=== PATIENT | female | born 1965 | race Caucasian/White ===

== ENCOUNTER 2017-05-07 20:10 | Inpatient (IN) | payer MEDICAID, OTHER ==
[~2017-05-07] VITALS: Ht 154.9 cm; Wt 52.3 kg
[~2017-05-07 20:10] MED LIST: BUPR150T9 PO; CLON2TAB2 PO; DIVA500T2 PO; DIVA500T9 PO; LISI-334 PO; MAGN400T22 PO; METF10002 PO; METF500T4 PO; ONDA4TAB10 SL; SIMV40TA3 PO; TRAM50TA PO; TRAZ150T49 PO; VYVANCE; brintellix
[2017-05-07 21:53] LABS: BASO % 0 % (0-3); EOS # 0.1 x10^3/uL (0.0-0.7); EOS % 1 % (0-3); HEMATOCRIT 36.7 % (36.0-47.0); HEMOGLOBIN 12.3 g/dL (12.0-15.5); LYMPH # 2.4 x10^3/uL (1.0-4.8); LYMPH % 37 % (24-48); MEAN CORPUSCULAR HEMOGLOBIN 30 pg (25-35); MEAN CORPUSCULAR HGB CONC 34 g/dL (31-37); MEAN CORPUSCULAR VOLUME 89 fL (79-100); MONO # 0.5 x10^3/uL (0.0-1.1); MONO % 8 % (0-9); NEUT # 3.5 x10^3uL (1.8-7.7); NEUT % 53 % (31-73); PLATELET COUNT 206 x10^3/uL (140-400); RED BLOOD COUNT 4.13 x10^6/uL (3.50-5.40); RED CELL DISTRIBUTION WIDTH 13.9 % (11.5-14.5); WHITE BLOOD COUNT 6.6 x10^3/uL (4.0-11.0)
[2017-05-07 22:09] LABS: BARBITURATES NEG (NEG); BENZODIAZEPINES POS (NEG); CANNABINOIDS NEG (NEG); COCAINE NEG (NEG); METHADONE NEG (NEG); OPIATES NEG (NEG); PHENCYCLIDINE NEG (NEG)
[2017-05-07 22:10] LABS: AMPHETAMINE/METHAMPHETAMINE POS (NEG)
[2017-05-07 22:12] LABS: ALBUMIN 3.7 g/dL (3.4-5.0); ALK PHOS 66 U/L (46-116); ALT (SGPT) 13 U/L (14-59); ANION GAP 8 (6-14); AST (SGOT) 8 U/L (15-37); BLOOD UREA NITROGEN 21 mg/dL (7-20); BUN/CREATININE RATIO 19 (6-20); CALCIUM 8.8 mg/dL (8.5-10.1); CARBON DIOXIDE 29 mmol/L (21-32); CHLORIDE 100 mmol/L (98-107); CREATININE 1.1 mg/dL (0.6-1.0); GFR 52.6; GLUCOSE 146 mg/dL (70-99); LIPASE 140 U/L (73-393); POTASSIUM 3.9 mmol/L (3.5-5.1); SODIUM 137 mmol/L (136-145); TOTAL BILIRUBIN 0.3 mg/dL (0.2-1.0); TOTAL PROTEIN 7.5 g/dL (6.4-8.2); VAL ACID 39 mcg/mL (50-100)
[2017-05-07 22:13] LABS: COLOR,URINE YELLOW
[2017-05-07 22:14] LABS: BACTERIA,URINE MANY /HPF (0-FEW); BILIRUBIN,URINE NEG (NEG); CLARITY,URINE CLEAR; GLUCOSE,URINE NEG (NEG); HYALINE CASTS, URINE OCC /HPF; NITRITE,URINE POS (NEG); SQUAMOUS EPITHELIAL CELL,UR OCC /LPF; UROBILINOGEN,URINE 0.2 mg/dL (0.2 mg/dL)
--- NOTE | 2017-05-07 23:06 | RAD ---
CT HEAD INDICATION: CT HEAD DIZZINESS APPROXIMATELY ONE MONTH, WEAKNESS TODAY COMPARISON: 06/28/2015 TECHNIQUE: 5 mm contiguous axial images were obtained from the skull base to the vertex in both bone and soft tissue algorithm. Exposure: One or more of the following individualized dose reduction techniques were utilized for this examination: 1. Automated exposure control 2. Adjustment of the mA and/or kV according to patient size 3. Use of iterative reconstruction technique FINDINGS: No abnormal attenuation within the brain parenchyma. No evidence of acute intracranial hemorrhage. No extra-axial fluid collections. No mass effect or midline shift. Ventricular size is appropriate. Basal cisterns are patent. No fractures identified.Fitzgerald-white differentiation is preserved.Globes and orbits are within normal limits. Paranasal sinuses and mastoid air cells are clear. IMPRESSION: Unremarkable CT examination of the head without contrast, as above. Specifically, no evidence of an acute intracranial abnormality. Electronically signed by: Randy Coronado MD (05/07/2017 11:03 PM) [facility]
[2017-05-08] MEDS ORDERED: cefTRIAXone SODIUM 1 GM VIAL IV ONE (00:03)
[2017-05-08] MEDS ORDERED: IV NORMAL SALINE 50ML 50 ML ONE (00:03)
[2017-05-08] MEDS ORDERED: LISI-338 PO (00:15)
[2017-05-08] MEDS ORDERED: ATEN25TA PO (00:16)
[2017-05-08] MEDS ORDERED: SIMV10TA3 PO (00:16)
[2017-05-08] MEDS ORDERED: LISD50CA3 PO (00:17)
[2017-05-08] MEDS ORDERED: VARE1TAB21 PO (00:18)
[2017-05-08] MEDS ORDERED: OMEP20CA9 PO (00:18)
[2017-05-08] MEDS ORDERED: PIOG15TA69 PO (00:19)
[2017-05-08] MEDS ORDERED: GUAN2TAB14 PO (00:26)
[2017-05-08] MEDS ORDERED: VORT20TA PO (00:27)
[2017-05-08] MEDS ORDERED: NITROGLYCERIN SUBLINGUAL 0.4 MG BOTTLE OF 25. SL PRN (00:30)
[2017-05-08] MEDS ORDERED: ACETAMINOPHEN 325 MG TABLET PO PRN (00:30)
[2017-05-08] MEDS ORDERED: ONDANSETRON PF 4 MG/2 ML VIAL. IV ONE (00:30)
[2017-05-08] MEDS ORDERED: IV NORMAL SALINE 1,000ML 1,000 ML IV ONE (00:30)
[2017-05-08] MEDS ORDERED: ONDANSETRON PF 4 MG/2 ML VIAL. IV PRN (00:30)
[2017-05-08 00:55] VITALS: BP 111/55
[2017-05-08] MEDS ORDERED: IV NORMAL SALINE 1,000ML 1,000 ML ONE (01:01)
--- NOTE | 2017-05-08 01:14 | ED.ADGEN ---
Past History Past Medical History: Anxiety, Depression, Diabetes, GERD, High Cholesterol, Heart Disease, Hypertension, IBS, Other Past Surgical History: Hysterectomy, Tonsillectomy, Other Smoking: Cigarettes, Less than 1pk/day Alcohol Use: None Drug Use: None Adult General HPI HPI Patient is a 52-year-old woman, history of diabetes mellitus, hypertension, CAD , gastroparesis, IBS, who presents to the emergency department via EMS with a complaint of weakness is worsening over the past 3 weeks. Patient is also complaining of lightheadedness, dizziness, feelings of being off balance, nausea , occasional abdominal pain, some shortness of breath. She denies similar symptoms previously, denies any injuries, any recent travel or surgery. States she has had some adjustments in her medication recently, with "mood medications ", patient is taking divalproex. She states that she did have this medication either admitted or adjusted about 3 weeks ago. She denies any recent travel or surgery, any swelling extremities, any chest pain, any diarrhea, any focal weakness, numbness or tingling. States that occasionally she feels like her vision is blurring, but not currently. She does have a history of gastroparesis. Review of Systems Review of Systems Constitutional: Denies fever or chills [] generalized weakness and malaise. Eyes: Denies change in visual acuity, redness, or eye pain [] HENT: Denies nasal congestion or sore throat [] Respiratory: Denies cough or shortness of breath [] Cardiovascular: No additional information not addressed in HPI [] GI: Denies abdominal pain, nausea, vomiting, bloody stools or diarrhea [] : Denies dysuria or hematuria [] Musculoskeletal: Denies back pain or joint pain [] Integument: Denies rash or skin lesions [] Neurologic: Denies headache, focal weakness or sensory changes [] Endocrine: Denies polyuria or polydipsia [] Current Medications Current Medications Current Medications Medications (Trade) Dose Ordered Sig/David Start Time Stop Time Status Last Admin Dose Admin Acetaminophen (Tylenol) 650 mg PRN Q4HRS PRN 05/08/17 00:30 05/08/17 00:45 DC Ceftriaxone Sodium 1 gm/ Sodium Chloride 50 ml @ 100 mls/hr QHS 05/08/17 21:00 05/08/17 21:00 DC Ceftriaxone Sodium (Rocephin) 1 gm STK-MED ONCE 05/08/17 00:03 05/08/17 00:04 DC Nitroglycerin (Nitrostat) 0.4 mg PRN Q5MIN PRN 05/08/17 00:30 05/08/17 00:45 DC Ondansetron HCl (Zofran) 4 mg PRN Q4HRS PRN 05/08/17 00:30 05/08/17 00:45 DC Sodium Chloride 1,000 ml @ As Directed STK-MED ONCE 05/08/17 01:01 05/08/17 01:02 DC Allergies Allergies Allergies Coded Allergies Type Severity Reaction Last Updated Verified amoxicillin Allergy Intermediate 05/07/17 Yes erythromycin base Allergy Intermediate STOMACH PAIN 05/08/15 Yes Physical Exam Physical Exam Constitutional: Well developed, well nourished, no acute distress, non-toxic appearance. [] HENT: Normocephalic, atraumatic, bilateral external ears normal, oropharynx moist, no oral exudates, nose normal. [] Eyes: PERRLA, EOMI, conjunctiva normal, no discharge. [] Neck: Normal range of motion, no tenderness, supple, no stridor. [] Cardiovascular:Heart rate regular rhythm, no murmur , S1, S2, rubs or gallops. [ ] Lungs & Thorax: Bilateral breath sounds clear to auscultation, no wheezing, rhonchi, rales. No chest wall crepitus or tenderness. [] Abdomen: Bowel sounds normal, soft, no tenderness, no rebound, rigidity, no guarding, no masses, no pulsatile masses. [] Skin: Warm, dry, no erythema, no rash. [] Back: No tenderness, no CVA tenderness. [] Extremities: No tenderness, no cyanosis, no clubbing, ROM intact, no edema. Negative Homans sign. Neurologic: Alert and oriented X 3, normal motor function, normal sensory function, no focal deficits noted. [] Psychologic: Affect normal, judgement normal, mood normal. [] Current Patient Data Vital Signs Vital Signs Date Time Temp Pulse Resp B/P (MAP) Pulse Ox O2 Delivery O2 Flow Rate FiO2 05/07/17 20:15 98.5 76 20 97 Room Air Lab Results Laboratory Tests Test 05/07/17 21:34 05/07/17 21:35 05/07/17 21:40 White Blood Count 6.6 x10^3/uL (4.0-11.0) Red Blood Count 4.13 x10^6/uL (3.50-5.40) Hemoglobin 12.3 g/dL (12.0-15.5) Hematocrit 36.7 % (36.0-47.0) Mean Corpuscular Volume 89 fL (79-100) Mean Corpuscular Hemoglobin 30 pg (25-35) Mean Corpuscular Hemoglobin Concent 34 g/dL (31-37) Red Cell Distribution Width 13.9 % (11.5-14.5) Platelet Count 206 x10^3/uL (140-400) Neutrophils (%) (Auto) 53 % (31-73) Lymphocytes (%) (Auto) 37 % (24-48) Monocytes (%) (Auto) 8 % (0-9) Eosinophils (%) (Auto) 1 % (0-3) Basophils (%) (Auto) 0 % (0-3) Neutrophils # (Auto) 3.5 x10^3uL (1.8-7.7) Lymphocytes # (Auto) 2.4 x10^3/uL (1.0-4.8) Monocytes # (Auto) 0.5 x10^3/uL (0.0-1.1) Eosinophils # (Auto) 0.1 x10^3/uL (0.0-0.7) Basophils # (Auto) 0.0 x10^3/uL (0.0-0.2) Sodium Level 137 mmol/L (136-145) Potassium Level 3.9 mmol/L (3.5-5.1) Chloride Level 100 mmol/L (98-107) Carbon Dioxide Level 29 mmol/L (21-32) Anion Gap 8 (6-14) Blood Urea Nitrogen 21 mg/dL (7-20) H Creatinine 1.1 mg/dL (0.6-1.0) H Estimated GFR (Cockcroft-Gault) 52.6 BUN/Creatinine Ratio 19 (6-20) Glucose Level 146 mg/dL (70-99) H Calcium Level 8.8 mg/dL (8.5-10.1) Total Bilirubin 0.3 mg/dL (0.2-1.0) Aspartate Amino Transferase (AST) 8 U/L (15-37) L Alanine Aminotransferase (ALT) 13 U/L (14-59) L Alkaline Phosphatase 66 U/L (46-116) Total Protein 7.5 g/dL (6.4-8.2) Albumin 3.7 g/dL (3.4-5.0) Albumin/Globulin Ratio 1.0 (1.0-1.7) Lipase 140 U/L (73-393) Valproic Acid Level 39 mcg/mL (50-100) L Valproic Acid Last Dose Date 05/07/17 Valproic Acid Last Dose Time 0900 Urine Collection Type Unknown Urine Color Yellow Urine Clarity Clear Urine pH 5.5 Urine Specific [place] 1.025 Urine Protein Neg (NEG-TRACE) Urine Glucose (UA) Neg mg/dL (NEG) Urine Ketones (Stick) Neg mg/dL (NEG) Urine Blood Neg (NEG) Urine Nitrite Pos (NEG) Urine Bilirubin Neg (NEG) Urine Urobilinogen Dipstick 0.2 mg/dL (0.2 mg/dL) Urine Leukocyte Esterase Trace (NEG) Urine RBC 1-2 /HPF (0-2) Urine WBC 5-10 /HPF (0-4) Urine Squamous Epithelial Cells Occ /LPF Urine Bacteria Many /HPF (0-FEW) Urine Hyaline Casts Occ /HPF Urine Mucus Slight /LPF Urine Opiates Screen Neg (NEG) Urine Methadone Screen Neg (NEG) Urine Barbiturates Neg (NEG) Urine Phencyclidine Screen Neg (NEG) Urine Amphetamine/Methamphetamine Pos (NEG) Urine Benzodiazepines Screen Pos (NEG) Urine Cocaine Screen Neg (NEG) Urine Cannabinoids Screen Neg (NEG) Urine Ethyl Alcohol Neg (NEG) EKG EKG EC: Sinus rhythm, heart rate 71 beats are minute, upright axis, QTC of 411, MS of 120, QRS of 82, contour normality is noted in the anterior septal leads, but no ST elevations or depressions, abnormal ECG, no prior for comparison. Does not meet STEMI criteria. As interpreted by me. [] Radiology/Procedures Radiology/Procedures [][address] [address] IMAGING REPORT Signed PATIENT: DESTINEE SANDOVAL ACCOUNT: [id number] : 1965 LOCATION: ER AGE: 52 SEX: F EXAM STATUS: PRE ER ORD. PHYSICIAN: HOOD WINKLER DO REASON: weakness/dizziness PROCEDURE: CT HEAD WO CONTRAST CT HEAD INDICATION: CT HEAD DIZZINESS APPROXIMATELY ONE MONTH, WEAKNESS TODAY COMPARISON: 06/28/2015 TECHNIQUE: 5 mm contiguous axial images were obtained from the skull base to the vertex in both bone and soft tissue algorithm. Exposure: One or more of the following individualized dose reduction techniques were utilized for this examination: 1. Automated exposure control 2. Adjustment of the mA and/or kV according to patient size 3. Use of iterative reconstruction technique FINDINGS: No abnormal attenuation within the brain parenchyma. No evidence of acute intracranial hemorrhage. No extra-axial fluid collections. No mass effect or midline shift. Ventricular size is appropriate. Basal cisterns are patent. No fractures identified.Fitzgerald-white differentiation is preserved.Globes and orbits are within normal limits. Paranasal sinuses and mastoid air cells are clear. IMPRESSION: Unremarkable CT examination of the head without contrast, as above. Specifically, no evidence of an acute intracranial abnormality. Electronically signed by: Randy Coronado MD (05/07/2017 11:03 PM) [facility] DICTATED AND SIGNED BY: RANDY CORONADO MD DATE: 05/07/172300 CC: HOOD WINKLER DO; STEPHEN STEVENS ~ Abdominal series: 3 view: Normal cardiopulmonary silhouette, no infiltrates or effusions, no pneumothorax, no free air, patient was stool and bowel gas throughout, no evidence of obstruction. As interpreted by me. Course & Med Decision Making Course & Med Decision Making Pertinent Labs and Imaging studies reviewed. (See chart for details) Due to patient's multiple complaints, ECG, she of acute abdominal series, laboratory studies were obtained. Patient with urinalysis positive for nitrates , bacteria, and white blood cells. The telemetry studies not reveal concerning findings. CT of the head was also unremarkable. I did discuss findings with patient, she states that she is feeling very weak, has concerns that she is unable family safely at this time, is agreeable for admission to the hospital for continued monitoring, including serial enzymes with her initial troponin negative, and IV antibiotics and fluids for her urinary tract infection. I did discuss findings as above with Dr. Sorto, patient was accepted his service for admission to [facility] on the telemetry floor, with serial enzymes ordered, and ceftriaxone which was initiated in the ED. Patient remained stable and comfortable in the emergency department, at time of transfer to the main hospital. Final Impression Final Impression [] Problems: Dragon Disclaimer Dragon Disclaimer This electronic medical record was generated, in whole or in part, using a voice recognition dictation system. Departure: Impression: Primary Impression: Fatigue Additional Impressions: Urinary tract infection Generalized weakness Disposition: ADMITTED INPATIENT Admitting Physician: Jorge A Sorto Condition: IMPROVED HOOD WINKLER DO May 08, 2017 01:14
[2017-05-08] MEDS ORDERED: DEXTROSE 50% 25 GM / 50ML DISP.SYRIN. IV PRN (01:15)
--- NOTE | 2017-05-08 02:08 | EKG ---
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
[2017-05-08] MEDS ORDERED: CLON1TAB3 PO (02:35)
[2017-05-08] MEDS ORDERED: TRAM50TA PO (02:36)
[2017-05-08 05:22] VITALS: BP 91/54
[2017-05-08 05:57] LABS: BASO # 0.1 x10^3/uL (0.0-0.2); BASO % 1 % (0-3); EOS # 0.1 x10^3/uL (0.0-0.7); EOS % 2 % (0-3); HEMOGLOBIN 11.9 g/dL (12.0-15.5); LYMPH # 2.4 x10^3/uL (1.0-4.8); LYMPH % 46 % (24-48); MEAN CORPUSCULAR HEMOGLOBIN 30 pg (25-35); MEAN CORPUSCULAR HGB CONC 33 g/dL (31-37); MEAN CORPUSCULAR VOLUME 90 fL (79-100); MONO # 0.5 x10^3/uL (0.0-1.1); MONO % 10 % (0-9); NEUT # 2.2 x10^3uL (1.8-7.7); NEUT % 42 % (31-73); PLATELET COUNT 188 x10^3/uL (140-400); RED CELL DISTRIBUTION WIDTH 14.2 % (11.5-14.5); WHITE BLOOD COUNT 5.3 x10^3/uL (4.0-11.0)
[2017-05-08 06:04] LABS: CALCIUM 8.6 mg/dL (8.5-10.1); CREATININE 0.9 mg/dL (0.6-1.0); GFR 66.3; POTASSIUM 4.2 mmol/L (3.5-5.1)
--- NOTE | 2017-05-08 08:04 | RAD ---
Indication: Weakness, abdominal pain, reflux. Decreased motility of bowel. Technique: Abdominal series with PA chest radiograph contains 3 images. Comparison is from November 27, 2014. Findings: The lungs are clear. The heart is not enlarged. There is no free air. There is no dilated small bowel loop or air-fluid level. Stool burden in the colon is moderate. Impression: 1. Nonobstructive bowel gas pattern. 2. Moderate amount of stool throughout the colon.
[2017-05-08] MEDS: PANTOPRAZOLE 40 MG TABLET. PO SCH (08:07)
[2017-05-08] MEDS: metFORMIN 500 MG TABLET PO SCH ×2 (08:07→17:03)
[2017-05-08] MEDS: MAGNESIUM OXIDE 400 MG TABLET PO SCH ×2 (08:08→20:03)
[2017-05-08] MEDS: INSULIN ASPART 300 UNITS/3 ML INSULN.PEN SQ SCH ×3 (08:30→16:59)
[2017-05-08 11:00] VITALS: BP 110/70
[2017-05-08] MEDS ORDERED: clonazePAM 1 MG TABLET PO PRN (11:45)
[2017-05-08] MEDS ORDERED: clonazePAM 2 MG TABLET PO PRN (11:45)
[2017-05-08] MEDS ORDERED: traMADol 50 MG TABLET PO PRN (11:45)
[2017-05-08] MEDS ORDERED: LISDEXAMFETAMINE DIMESYLATE 50 MG PO PRN (11:45)
[2017-05-08] MEDS: ATENOLOL 25 MG TABLET PO SCH (12:10)
[2017-05-08] MEDS: LISINOPRIL 5 MG TABLET. PO SCH (12:10)
[2017-05-08] MEDS ORDERED: guanFACINE HCL 1 MG TABLET PO SCH (12:15)
--- NOTE | 2017-05-08 12:41 | HP ---
ADMIT DATE: 05/08/2017 HISTORY OF PRESENT ILLNESS: The patient is a 52-year-old female patient who came to the Emergency Room complaining of generalized weakness that has been worsening over the last 3 weeks, she was complaining of lightheadedness, dizziness, feeling being off balance, nausea, occasional abdominal pain and shortness of breath. She stated that all her symptoms started when the [facility] has changed her medication. Apparently, her Depakote was increased from 500 to 750 and her Trintellix came was brought down from 40 to 20 and since then she has been extremely tired and easily fatigued. Sometimes when she would go to the grocery shop by the time she came to the [facility], she is so exhausted that she cannot even stand. She denied, however, any chest pain, denied any chills, rigors or fever. PAST MEDICAL HISTORY: Significant for type 2 diabetes mellitus with diabetic gastroparesis, hypertension, hyperlipidemia. She is known to have mitral valve regurgitation, gastroesophageal reflux disease. She did have a stress test done about a year ago and was unremarkable. She is known to have irritable bowel syndrome and a tendency to constipation, has also anxiety, depression and ADHD. PAST SURGICAL HISTORY: Significant for tonsillectomy, , partial hysterectomy, rectocele repair, tooth extraction, she has esophagogastroduodenoscopy as well as colonoscopy. ALLERGIES: She is allergic to AMOXICILLIN and ERYTHROMYCIN. MEDICATIONS: She is currently on following medications: She is on atenolol 25 mg once a day, clonazepam 2 mg twice a day as needed and 1 mg twice a day as needed, divalproex sodium 500 mg once a day, guaifenesin extended release 2 mg tablet once a day. She is on Vyvanse 50 mg daily, lisinopril 5 mg once a day, magnesium oxide 400 mg twice a day, metformin 1000 mg twice a day, omeprazole 20 mg daily, pioglitazone 15 mg once a day, simvastatin 10 mg at bedtime, tramadol 50 mg every 6 hours, trazodone 150 mg p.o. at bedtime and then Trintellix 20 mg daily. FAMILY HISTORY: She has 1 brother and 2 sisters, older. Does not know their medical problems. Her father at the age of 42 because of myocardial infarction. Mother at age of 83 secondary to COPD and acute respiratory failure. SOCIAL HISTORY: She is . She has 4 daughters. She continues to smoke. Does not drink alcohol. She is currently on disability. REVIEW OF SYSTEMS: The patient denied any blurring of vision, cataract, glaucoma or macular degeneration. Denied any earache, tinnitus or sensorineural deafness. Denied any nosebleeds, stuffy nose or postnasal drip. Denied any sore throat, sore tongue, toothache, hoarseness of voice or difficulty swallowing. Denied any nausea, vomiting. Denied any hematemesis, melena or hematochezia. She did complain of bouts of constipation alternating with diarrhea. She is on Linzess for that. Denied any dysuria, frequency or hematuria. She did say that she has chest pain, has been going on for almost 3 weeks. He did also complain of shortness of breath on exertion; however, denied any orthopnea or paroxysmal nocturnal dyspnea. Denied any cough, phlegm or hemoptysis. Denied any chills, rigors, or fever. Did complain of lightheadedness and dizziness, but denied any vertigo or palpitation. PHYSICAL EXAMINATION: GENERAL: On arrival to the Emergency Room, she looked somewhat pale. No jaundice, cyanosis, or thyromegaly. No jugular venous distention. No lower limb edema. VITAL SIGNS: Her heart rate was 76, blood pressure 109/51, temperature was 98.5, respiratory rate was 20, and oxygen saturation was 97% on room air. HEAD, EYES, EARS, NOSE AND THROAT: Showed normocephalic, atraumatic. NECK: Supple. HEART: Showed normal first and second heart sounds with no gallop, rub or murmur. CHEST: Clear to auscultation. No crepitation or rhonchi. ABDOMEN: Scaphoid, soft, nontender. No guarding or rigidity. No organomegaly. Hernial orifices intact. Bowel sounds normal. NEUROLOGIC: She was awake, alert, responding appropriately. Cranial nerves intact. EXTREMITIES: She moves extremities without difficulty. She normally ambulates without assistance or assistive devices. LABORATORY DATA: On admission showed that her serum sodium was 137, potassium 3.9, chloride 100, bicarbonate 29, anion gap of 8, BUN 21, creatinine 1.1, estimated GFR was 52 mL per minute. Her glucose was 146, calcium was 8.8. Total bilirubin, AST, ALT, alkaline phosphatase were normal. Her total protein was 7.5, albumin was 3.7. Serum lipase 140, has 2 sets of cardiac enzymes that so far negative. Her white cell count was 6600; hemoglobin 12.3; hematocrit 36.7; MCV 89 and platelet count of 206,000 with normal manual differential. Urinalysis showed the urine was yellow, clear with a pH of 5.5, specific gravity of 1.025. The urine was negative for protein, glucose, ketones, blood. Positive for nitrites. There was trace of leukocyte esterase. There were 1-2 rbc's, 5-10 wbc's, too many bacteria. Urine toxicology screen was positive for amphetamine, methamphetamine. She is already on IV vancomycin and she is also positive for benzodiazepine, negative for cocaine, cannabinoids and alcohol, methadone and opiates, barbiturates. Valproic acid was only 39 mcg/mL. She did have a CT scan of the head without contrast, which was unremarkable. CT examination of the head without contrast with no evidence of any acute intracranial hemorrhage, no extraaxial fluid collection, no mass effect or midline shift, ventricular size is appropriate, basilar cisterns are patent, no fracture identified, a burciaga-white differentiation is preserved. Globes and orbits are within normal limits. Paranasal sinuses and mastoid air cells are clear. She did have acute abdomen series, which showed nonobstructive bowel gas pattern, moderate amount of stool throughout the colon. ASSESSMENT AND PLAN: In summary, this is a 52-year-old female patient who came in with vague complaints that has been going on for almost 3 weeks now That she relates to the fact that her medication was changed. Her Trintellix was cut down from 40 to 20 and her Depakote was increased to 750 at the [facility]. We will obviously do 2 more sets of cardiac enzyme, consult the puzzle assembler and I will also check her sed rate and C-reactive protein as well as TSH. I will check her CK and as she is on simvastatin also and decide on further management accordingly. GALA MARTEL MD DR: KALEN/phillip JOB#: [id number] / [id number]
[2017-05-08] MEDS: PIOGLITAZONE 15 MG TABLET. PO SCH (12:54)
[2017-05-08] MEDS: DIVALPROEX ER 500 MG TAB.ER.24H PO SCH (12:55)
[2017-05-08 15:32] VITALS: BP 119/62
[2017-05-08 18:25] VITALS: BP 116/73
--- NOTE | 2017-05-08 19:54 | PDOC ---
Exam Alberto Demential Exam: Alberto Note: Please also refer to the separate dictated note~for this date of service dictated separately.~Patient seen individually. Discussed the patient with Nursing staff reviewed the chart.~Reviewed interim history and current functioning. Reviewed vital signs,~Labs/ Radiology~and current medications noted below. Continue current treatment with the changes noted in the dictated addendum note Assessment: Vital Signs: Vital Signs Date Time Temp Pulse Resp B/P (MAP) Pulse Ox O2 Delivery O2 Flow Rate FiO2 05/08/17 18:25 70 16 116/73 (87) 95 Room Air 05/08/17 15:32 97.9 I&O Intake and Output 05/08/17 07:00 Intake Total 739 ml Output Total 400 ml Balance 339 ml Intake Oral 120 ml IV Total 619 ml Output Urine Total 400 ml Labs: Laboratory Tests Test 05/07/17 21:34 05/07/17 21:35 05/07/17 21:40 05/08/17 05:38 White Blood Count 6.6 x10^3/uL (4.0-11.0) 5.3 x10^3/uL (4.0-11.0) Red Blood Count 4.13 x10^6/uL (3.50-5.40) 4.00 x10^6/uL (3.50-5.40) Hemoglobin 12.3 g/dL (12.0-15.5) 11.9 g/dL (12.0-15.5) L Hematocrit 36.7 % (36.0-47.0) 36.0 % (36.0-47.0) Mean Corpuscular Volume 89 fL (79-100) 90 fL (79-100) Mean Corpuscular Hemoglobin 30 pg (25-35) 30 pg (25-35) Mean Corpuscular Hemoglobin Concent 34 g/dL (31-37) 33 g/dL (31-37) Red Cell Distribution Width 13.9 % (11.5-14.5) 14.2 % (11.5-14.5) Platelet Count 206 x10^3/uL (140-400) 188 x10^3/uL (140-400) Neutrophils (%) (Auto) 53 % (31-73) 42 % (31-73) Lymphocytes (%) (Auto) 37 % (24-48) 46 % (24-48) Monocytes (%) (Auto) 8 % (0-9) 10 % (0-9) H Eosinophils (%) (Auto) 1 % (0-3) 2 % (0-3) Basophils (%) (Auto) 0 % (0-3) 1 % (0-3) Neutrophils # (Auto) 3.5 x10^3uL (1.8-7.7) 2.2 x10^3uL (1.8-7.7) Lymphocytes # (Auto) 2.4 x10^3/uL (1.0-4.8) 2.4 x10^3/uL (1.0-4.8) Monocytes # (Auto) 0.5 x10^3/uL (0.0-1.1) 0.5 x10^3/uL (0.0-1.1) Eosinophils # (Auto) 0.1 x10^3/uL (0.0-0.7) 0.1 x10^3/uL (0.0-0.7) Basophils # (Auto) 0.0 x10^3/uL (0.0-0.2) 0.1 x10^3/uL (0.0-0.2) Sodium Level 137 mmol/L (136-145) 142 mmol/L (136-145) Potassium Level 3.9 mmol/L (3.5-5.1) 4.2 mmol/L (3.5-5.1) Chloride Level 100 mmol/L (98-107) 105 mmol/L (98-107) Carbon Dioxide Level 29 mmol/L (21-32) 31 mmol/L (21-32) Anion Gap 8 (6-14) 6 (6-14) Blood Urea Nitrogen 21 mg/dL (7-20) H 18 mg/dL (7-20) Creatinine 1.1 mg/dL (0.6-1.0) H 0.9 mg/dL (0.6-1.0) Estimated GFR (Cockcroft-Gault) 52.6 66.3 BUN/Creatinine Ratio 19 (6-20) Glucose Level 146 mg/dL (70-99) H 154 mg/dL (70-99) H Calcium Level 8.8 mg/dL (8.5-10.1) 8.6 mg/dL (8.5-10.1) Total Bilirubin 0.3 mg/dL (0.2-1.0) Aspartate Amino Transferase (AST) 8 U/L (15-37) L Alanine Aminotransferase (ALT) 13 U/L (14-59) L Alkaline Phosphatase 66 U/L (46-116) Total Protein 7.5 g/dL (6.4-8.2) Albumin 3.7 g/dL (3.4-5.0) Albumin/Globulin Ratio 1.0 (1.0-1.7) Lipase 140 U/L (73-393) Valproic Acid Level 39 mcg/mL (50-100) L Valproic Acid Last Dose Date 05/07/17 Valproic Acid Last Dose Time 0900 Urine Collection Type Unknown Urine Color Yellow Urine Clarity Clear Urine pH 5.5 Urine Specific [place] 1.025 Urine Protein Neg (NEG-TRACE) Urine Glucose (UA) Neg mg/dL (NEG) Urine Ketones (Stick) Neg mg/dL (NEG) Urine Blood Neg (NEG) Urine Nitrite Pos (NEG) Urine Bilirubin Neg (NEG) Urine Urobilinogen Dipstick 0.2 mg/dL (0.2 mg/dL) Urine Leukocyte Esterase Trace (NEG) Urine RBC 1-2 /HPF (0-2) Urine WBC 5-10 /HPF (0-4) Urine Squamous Epithelial Cells Occ /LPF Urine Bacteria Many /HPF (0-FEW) Urine Hyaline Casts Occ /HPF Urine Mucus Slight /LPF Creatine Kinase 58 U/L (26-192) 48 U/L (26-192) Urine Opiates Screen Neg (NEG) Urine Methadone Screen Neg (NEG) Urine Barbiturates Neg (NEG) Urine Phencyclidine Screen Neg (NEG) Urine Amphetamine/Methamphetamine Pos (NEG) Urine Benzodiazepines Screen Pos (NEG) Urine Cocaine Screen Neg (NEG) Urine Cannabinoids Screen Neg (NEG) Urine Ethyl Alcohol Neg (NEG) Troponin I Quantitative < 0.017 ng/mL (0-0.055) Test 05/08/17 11:04 05/08/17 12:12 05/08/17 16:50 Erythrocyte Sedimentation Rate 12 (0-25) Creatine Kinase 51 U/L (26-192) Troponin I Quantitative < 0.017 ng/mL (0-0.055) C-Reactive Protein 2.4 mg/L (0-3.3) Thyroid Stimulating Hormone (TSH) 0.829 uIU/mL (0.358-3.740) Glucose (Fingerstick) 182 mg/dL (70-99) H 128 mg/dL (70-99) H Current Medications: Meds: Current Medications Ceftriaxone Sodium 1 gm/ Sodium Chloride 50 ml @ 100 mls/hr 1X ONCE IV Last administered on 05/08/17 00:00; Start 05/08/17 at 00:00; Stop 05/08/17 at 00:29 ; Status DC Sodium Chloride 1,000 ml @ 125 mls/hr 1X ONCE IV Last administered on 00:09; Start 05/08/17 at 00:30; Stop 05/08/17 at 08:30; Status DC Sodium Chloride 50 ml @ As Directed STK-MED ONCE .ROUTE ; Start 05/08/17 at 00: 03; Stop 05/08/17 at 00:04; Status DC Ceftriaxone Sodium (Rocephin) 1 gm STK-MED ONCE IV ; Start 05/08/17 at 00:03; Stop 05/08/17 at 00:04; Status DC Ondansetron HCl (Zofran) 4 mg 1X ONCE IV ; Start 05/08/17 at 00:30; Stop at 00:31; Status DC Ondansetron HCl (Zofran) 4 mg PRN Q4HRS PRN IV NAUSEA/VOMITING; Start 05/08/17 at 00:30; Stop 05/09/17 at 00:29 Acetaminophen (Tylenol) 650 mg PRN Q4HRS PRN PO FEVER Last administered on 05/08 17:55; Start 05/08/17 at 00:30; Stop 05/09/17 at 00:29 Nitroglycerin (Nitrostat) 0.4 mg PRN Q5MIN PRN SL CHEST PAIN; Start 05/08/17 at 00:30; Stop 05/09/17 at 00:29 Ceftriaxone Sodium 1 gm/ Sodium Chloride 50 ml @ 100 mls/hr QHS IV ; Start at 21:00 Sodium Chloride 1,000 ml @ As Directed STK-MED ONCE .ROUTE Last administered on 05/08/17 01:01; Start 05/08/17 at 01:01; Stop 05/08/17 at 01:02; Status DC Insulin Aspart (NovoLOG) 0-5 UNITS TIDPC SQ Last administered on 05/08/17 13: 00; Start 05/08/17 at 08:30 Dextrose 12.5 gm PRN Q15MIN PRN IV SEE COMMENTS; Start 05/08/17 at 01:15 Magnesium Oxide (Magnesium Oxide) 400 mg BID PO Last administered on 05/08/17 08:08; Start 05/08/17 at 09:00 Simvastatin (Zocor) 10 mg HS PO ; Start 05/08/17 at 21:00 Metformin HCl (Glucophage) 1,000 mg BIDWMEALS PO Last administered on 17:03; Start 05/08/17 at 08:00 Pantoprazole Sodium (Protonix) 40 mg DAILYAC PO Last administered on 05/08/17 08:07; Start 05/08/17 at 07:30 Atenolol (Tenormin) 25 mg DAILY PO ; Start 05/08/17 at 12:10 Clonazepam (KlonoPIN) 1 mg PRN BID PRN PO ANXIETY; Start 05/08/17 at 11:45 Clonazepam (KlonoPIN) 2 mg PRN BID PRN PO ANXIETY Last administered on 16:42; Start 05/08/17 at 11:45 Lisinopril (Prinivil) 5 mg DAILY PO ; Start 05/08/17 at 12:10 Pioglitazone HCl (Actos) 15 mg DAILY PO Last administered on 05/08/17 12:54; Start 05/08/17 at 12:10 Tramadol HCl (Ultram) 50 mg PRN Q6HRS PRN PO PAIN; Start 05/08/17 at 11:45 Trazodone HCl (Desyrel) 150 mg HS PO ; Start 05/08/17 at 21:00 Divalproex Sodium (Depakote Er) 500 mg DAILY PO Last administered on 05/08/17 12:55; Start 05/08/17 at 12:10 Guanfacine HCl (Tenex) 2 mg DAILY PO ; Start 05/08/17 at 12:15; Stop 05/08/17 at 12:15; Status DC Non-Formulary Medication 50 mg PRN DAILY PRN PO ADHD; Start 05/08/17 at 11:45; Status UNV Non-Formulary Medication 20 mg DAILY PO ; Start 05/09/17 at 09:00; Status UNV Active Scripts Active Mag-Oxide (Magnesium Oxide) 400 Mg Tablet 1 Tab PO BID Reported Tramadol Hcl (Tramadol HCl) 50 Mg Tablet 50 Mg PO PRN Q6HRS PRN Clonazepam 1 Mg Tablet 1 Mg PO PRN BID PRN Trintellix (Vortioxetine Hydrobromide) 20 Mg Tablet 20 Mg PO DAILY Guanfacine HCl ER (Guanfacine HCl) 2 Mg Tab.er.24h 2 Mg PO DAILY Pioglitazone Hcl 15 Mg Tablet 15 Mg PO DAILY Omeprazole 20 Mg Capsule.dr 20 Mg PO DAILYAC Vyvanse (Lisdexamfetamine Dimesylate) 50 Mg Capsule 50 Mg PO PRN DAILY PRN Simvastatin 10 Mg Tablet 10 Mg PO HS Atenolol 25 Mg Tablet 25 Mg PO DAILY Lisinopril 5 Mg Tablet 5 Mg PO DAILY Metformin Hcl 1,000 Mg Tablet 1,000 Mg PO BIDWMEALS Depakote (Divalproex Sodium) 500 Mg Tablet.dr 500 Mg PO DAILY Clonazepam 2 Mg Tablet 2 Mg PO PRN BID PRN Trazodone Hcl 150 Mg Tablet 150 Mg PO HS Diagnosis: Problems: (1) Major depressive disorder, recurrent episode (2) Bipolar affective disorder, depressed LATASHA JACKSON MD May 08, 2017 19:54
[2017-05-08] MEDS: ARIPiprazole 5 MG TABLET PO SCH (20:43)
[2017-05-08] MEDS ORDERED: SIMVASTATIN 10 MG TABLET PO SCH (21:00)
[2017-05-08] MEDS ORDERED: traZODone 150 MG TABLET. PO SCH (21:00)
[2017-05-08 23:01] VITALS: BP 106/66
--- NOTE | 2017-05-09 00:48 | PN ---
DATE: 05/08/2017 SUBJECTIVE: The patient is resting slightly comfortably, in no apparent distress. She continued to complain of severe weakness and easy fatigability. All these symptoms started about 3 weeks ago. She stated that they have changed her medication and increased her Depakote, although she has never actually used the higher dose. Her Trintellix dose was cut down from 40 to 20. OBJECTIVE: GENERAL: When I examined her this morning, she looked well and was clearly in no apparent respiratory distress. She was slightly pale, but no jaundice, cyanosis, or thyromegaly. No jugular venous distention. No limb edema. VITAL SIGNS: Her heart rate was 72, blood pressure was 91/54, temperature was 97.3, respiratory rate was 18, and oxygen saturation was 95%. HEAD, EYES, EARS, NOSE AND THROAT: Normocephalic and atraumatic. NECK: Supple. HEART: Showed normal first and second sounds. No gallop, rub, or murmur. CHEST: Clear to auscultation. No crepitation or rhonchi. ABDOMEN: Distended, soft, and nontender. No guarding or rigidity. No organomegaly. Hernial orifices are intact. Bowel sounds normal. NEUROLOGIC: She is awake, alert, and responding appropriately. Cranial nerves are intact. She moves all extremities without difficulty. Her intake over the last 24 hour was 740 and output was 400. LABORATORY DATA: This morning showed a serum sodium 142, potassium 4.2, chloride 105, bicarbonate 31, anion gap of 6, BUN 18, creatinine 0.9, estimated GFR was 66 mL per minute, her glucose 154, and calcium was 8.6. ASSESSMENT AND PLAN: She has two sets of cardiac enzymes that were negative. Her CK was also within normal limits. I basically ordered to check her thyroid function as well as sedimentation rate and C-reactive protein. I have also consulted ___ whether we need to increase her Trintellix to 40 mg or alter her other medications. GALA MARTEL MD DR: KALEN/phillip JOB#: [id number] / [id number]
--- NOTE | 2017-05-09 01:45 | CONS ---
DATE OF CONSULTATION: 05/08/2017 This note covers elements not covered in my initial note of 05/08/2017. IDENTIFYING DATA: The patient is a 52-year-old female seen in room #124, [facility] for a psychiatric consult requested by Dr. Sorto on account of the patient's worsening symptoms of depression, anxiety, failure of outpatient psychiatric interventions at the [facility] for her bipolar disorder, depressed. The patient has been hospitalized consequent to her UTI and weakness. Reportedly, she has significant psychosocial stresses at home, conflicts with her family members. Her 2 older daughters have moved out of the home to go to college and the 2 younger ones are living with their father. The patient reportedly lives alone at home with her dog. CHIEF COMPLAINT: "Yes, I have been depressed. They reduced my Trintellix from 40 mg a day to 20 mg a day and I am on Depakote for bipolar disorder. I do not have manic episodes, but I get depressed, then get to feeling better for periods of time. I did best on Paxil in the past along with Abililachelley. I don't know why they stopped it. Celexa was of no help. I am on disability for my bipolar disorder. I have not been suicidal." HISTORY OF PRESENT ILLNESS: Reportedly, the patient has a long history of bipolar disorder diagnosed at an early age and treated over the years in [place] and then since 2005 here at the [facility] in [place]. Reportedly, she was started on Depakote in 2010, the details of this are unclear as the patient denies any clear manic episodes. Nevertheless, she is on disability for bipolar disorder diagnosis. No clear psychotic symptoms, suicidal, or homicidal ideation. No alcohol or drug abuse history noted. Cognitively, she is reasonably intact. The patient relates problems with inattention, distractibility, and reportedly has a past diagnosis of ADHD for which she is currently on Vyvanse. PAST PSYCHIATRIC HISTORY: As above. MEDICAL HISTORY: Positive for lightheadedness, dizziness, feeling off balance, nausea, abdominal pain, shortness of breath, diabetes mellitus, diabetic gastroparesis, hypertension, hyperlipidemia, mitral regurgitation, GERD, irritable bowel syndrome, history of ADHD. PAST SURGICAL HISTORY: Tonsillectomy, , partial hysterectomy, rectocele repair, tooth extraction. She has had an EGD as well as colonoscopy. ALLERGIES: AMOXIL, ERYTHROMYCIN. CURRENT PSYCHOTROPICS: Klonopin 2 mg twice a day 1 mg twice a day p.r.n., Depakote 500 mg once a day, Vyvanse 50 mg a day, Trintellix 20 mg a day, trazodone 150 mg p.o. at bedtime. FAMILY HISTORY: The patient states 2 of her daughters have been diagnosed with bipolar disorder, 1 daughter used to cut on herself repeatedly. No alcohol or drug abuse history in the family. She has a history of [place] in her father, COPD in biological mother who at age 83. SOCIAL HISTORY: The patient is . She has 4 daughters. She continues to smoke. She is on disability, lives at home as noted along with her dog. Reportedly, she has an older male friend who is involved as a friend with her. She is unable to give me any more details on this. MENTAL STATUS EXAMINATION: The patient was seen individually. She is oriented to place, time, person, and situation. She admits to being tired. Speech is coherent, abstraction fair, computation impaired, attention span short, language function intact. No active psychotic symptoms, suicidal, or homicidal ideation. IMPRESSION: Probable bipolar 2 disorder, depressed, history of attention-deficit hyperactivity disorder, anxiety disorder, unspecified. Rest diagnoses as above including urinary tract infection. PLAN: Discussed treatment options at length with the patient. We will continue her current psychotropics including the Depakote and add Abilify 5 mg a day to augment the Trintellix 20 mg a day. The patient has responded well to Abilify in the past as a boost and hopefully will do that again. I am not so sure that Depakote is the most appropriate medication for her bipolar disorder since she denies any clear manic episodes and seems to have symptoms more suggestive of bipolar 2 disorder and have to defer this to the [facility] to consider treatment on Lamictal in place of Depakote for the bipolar II disorder if this diagnosis is confirmed as an outpatient. Seeing the patient only once had preferred not to make that change ____ in the hospital and she has an ongoing care outpatient at the [facility] and that will be the best venue to make this change. Nevertheless for now, we will add Abilify 5 mg a day, defer rest to outpatient followup at the [facility]. MAN Jayshree JACKSON MD DR: Pau JOB#: [id number] / [id number]
--- NOTE | 2017-05-09 02:05 | ACF ---
Admission Criteria Forms URINARY COMPLICATIONS (Place 'X' for any and all applicable criteria): Ongoing inpatient care may be needed for Urinary complications with 1 or more of the following: [ ]I. Reduced urine output (eg, despite adequate hydration) [ ]II. Renal failure. (Also use Renal Failure: Common Complications and Conditions as appropriate) [ ]III. Urinary retention requiring drainage or surgery(19)(20)(21)(33)(34) [ ]IV. Postobstructive diuresis requiring close monitoring of urine output and intravenous compensation for excessive fluid losses(35) [ X]V. Urinary tract infection requiring inpatient care as indicated by ANY ONE of the following(8)(19)(20): [ ]a) Hemodynamic instability [ ]b) Severe symptoms (eg, high fever, severe pain) [ ]c) Vomiting or dehydration requiring ongoing inpatient care [ X ]d) IV antibiotic needs that cannot be managed at lower level of care [ ]e) Obstruction of collecting system by stone or tumor Extended stay beyond goal length of stay for primary condition may be needed until ALL of the following are present(3)(4)(5)(8): [ ]a) Renal function (creatinine) at baseline, or daily decreases in creatinine consistent with renal function return [ ]b) Voiding adequately or with urinary catheter or percutaneous suprapubic tube and management regimen in place that is performable at lower level of care. [ ]c) Urine output adequate [ ]d) Fever absent or resolving [ ]e) Infection absent or treatable at next level of care The original [employer]) content created by [employer] has been revised. The portions of the content which have been revised are identified through the use of italic text, and [facility] has neither reviewed nor approved the modified material. All other unmodified content is copyright [facility] Please see references footnoted in the original [facility] edition 2015 Admission Criteria Met?: Yes SESAR LIU May 09, 2017 02:05
[2017-05-09 05:30] VITALS: BP 121/68
[2017-05-09 06:16] LABS: BASO % 1 % (0-3); EOS # 0.1 x10^3/uL (0.0-0.7); EOS % 3 % (0-3); HEMATOCRIT 35.8 % (36.0-47.0); HEMOGLOBIN 11.9 g/dL (12.0-15.5); LYMPH # 2.1 x10^3/uL (1.0-4.8); LYMPH % 48 % (24-48); MEAN CORPUSCULAR HEMOGLOBIN 30 pg (25-35); MEAN CORPUSCULAR HGB CONC 33 g/dL (31-37); MEAN CORPUSCULAR VOLUME 90 fL (79-100); MONO # 0.4 x10^3/uL (0.0-1.1); MONO % 9 % (0-9); NEUT # 1.7 x10^3uL (1.8-7.7); NEUT % 39 % (31-73); PLATELET COUNT 176 x10^3/uL (140-400); RED CELL DISTRIBUTION WIDTH 13.9 % (11.5-14.5); WHITE BLOOD COUNT 4.3 x10^3/uL (4.0-11.0)
[2017-05-09 06:26] LABS: ALBUMIN 3.2 g/dL (3.4-5.0); ALBUMIN/GLOBULIN RATIO 0.9 (1.0-1.7); CALCIUM 8.7 mg/dL (8.5-10.1); CREATININE 0.8 mg/dL (0.6-1.0); GFR 75.9; POTASSIUM 4.4 mmol/L (3.5-5.1); TOTAL BILIRUBIN 0.2 mg/dL (0.2-1.0); TOTAL PROTEIN 6.7 g/dL (6.4-8.2)
[2017-05-09] MEDS: INSULIN ASPART 300 UNITS/3 ML INSULN.PEN SQ SCH (08:02)
[2017-05-09] MEDS: PANTOPRAZOLE 40 MG TABLET. PO SCH (08:13)
[2017-05-09] MEDS: metFORMIN 500 MG TABLET PO SCH (08:14)
[2017-05-09] MEDS: ARIPiprazole 5 MG TABLET PO SCH (08:14)
[2017-05-09] MEDS: PIOGLITAZONE 15 MG TABLET. PO SCH (08:15)
[2017-05-09] MEDS: DIVALPROEX ER 500 MG TAB.ER.24H PO SCH (08:15)
[2017-05-09] MEDS: MAGNESIUM OXIDE 400 MG TABLET PO SCH (08:16)
[2017-05-09] MEDS: LISINOPRIL 5 MG TABLET. PO SCH ×2 (08:16→08:22)
[2017-05-09] MEDS: ATENOLOL 25 MG TABLET PO SCH (08:22)
[2017-05-09] MEDS ORDERED: NON FORMULARY ITEM (Vortioxetine Hydrobromide (Trintellix) 20 MG) PO SCH (09:00)
[2017-05-09] MEDS ORDERED: ARIP5TAB13 PO (10:05)
[2017-05-09] MEDS ORDERED: SULF1TAB24 PO (10:05)
[2017-05-09 10:34] VITALS: BP 124/74
[2017-05-09] MEDS ORDERED: LISI-338 PO (10:43)
--- NOTE | 2017-05-09 21:29 | DS ---
DATE OF DISCHARGE: 05/09/2017 DISCHARGE DIAGNOSES: 1. Urinary tract infection growing gram negative rods. 2. Type 2 diabetes. 3. Bipolar 2 disorder. 4. Depression, anxiety. 5. Weakness secondary to urinary tract infection. 6. Hypotension secondary to blood pressure medications. HOSPITAL COURSE: This is a 52-year-old female who was admitted by Dr. Jorge A Sorto with ongoing problems of weakness and had been worsening over the last 3 weeks. She did have a urinary tract infection several weeks ago and still had a UTI. She does not feel that this possibly had resolved and she continues to feel quite weak and have urinary frequency. She did get much better while she was in the hospital, was treated with IV ceftriaxone. She did have several low blood pressures and had showed me some of her home blood pressures and we discussed decreasing her lisinopril. As she has had periods of AFib in the past, I wanted her to see her incident response manager before decreasing her atenolol. Her thyroid function tests were normal. PHYSICAL EXAMINATION: VITAL SIGNS: On the day of discharge, blood pressure 124/74, temperature 97.5, pulse 78, respirations 20, pulse ox 97% on room air. GENERAL: Color looks good. HEENT: Her tongue was moist. NECK: Supple. LUNGS: Clear. CARDIOVASCULAR: Regular rhythm and rate. ABDOMEN: Soft, nontender. No tenderness over her bladder. EXTREMITIES: Without edema. LABORATORY DATA: She had a normal albumin and I believe with IV fluids, it became a little bit lower and dilute. PLAN: For her to be discharged on continued antibiotics for UTI. Decrease her lisinopril to 2.5 daily. Advised to follow up with her incident response manager. Type written instructions were given and also to be seen at the [facility]. She will go home on Abilify, which is new. She was seen in consultation also by Dr. Fowler, psychiatrist. SELENE THOMAS DO DR: JOSEY/phillip JOB#: [id number] / [id number]
== END 2017-05-09 11:00 | disposition home or self-care (01) | DRG 690 ==
LOC: ER 20:10 → 1 SOUTH 05-08 00:16 → ER 05-08 00:44
PROVIDERS: ADMIT Internal Medicine; ATTEND Internal Medicine
DX: N39.0 Urinary tract infection, site not specified (principal); I95.2 Hypotension due to drugs; F31.81 Bipolar II disorder; F31.30 Bipolar disorder, current episode depressed, mild or moderate severity, unspecified; I10 Essential (primary) hypertension; I48.91 Unspecified atrial fibrillation; F41.9 Anxiety disorder, unspecified; T50.995A Adverse effect of other drugs, medicaments and biological substances, initial encounter; Y92.89 Other specified places as the place of occurrence of the external cause; E78.5 Hyperlipidemia, unspecified; K21.9 Gastro-esophageal reflux disease without esophagitis; I34.0 Nonrheumatic mitral (valve) insufficiency; K58.9 Irritable bowel syndrome, unspecified; F90.9 Attention-deficit hyperactivity disorder, unspecified type; Z90.89 Acquired absence of other organs; Z90.711 Acquired absence of uterus with remaining cervical stump; Z88.0 Allergy status to penicillin; Z88.1 Allergy status to other antibiotic agents; Z79.899 Other long term (current) drug therapy; Z82.49 Family history of ischemic heart disease and other diseases of the circulatory system; Z82.5 Family history of asthma and other chronic lower respiratory diseases; F17.210 Nicotine dependence, cigarettes, uncomplicated; E11.9 Type 2 diabetes mellitus without complications
CPT/HCPCS: 36415; 70450; 74022; 80048; 80053; 80164; 80307; 81001; 82550; 82947; 83690; 84443; 84484; 85025; 85651; 86140; 87086; 87186; 93005; 96365; 99406; J0696; J1815; 99285-25; G0479; J7030

== ENCOUNTER → 2017-06-16 | Outpatient (CLI) | payer OTHER ==
[~2017-06-16] MED LIST changes: +ARIP5TAB13 PO; +ATEN25TA PO; +CLON1TAB3 PO; +GUAN2TAB14 PO; +LISD50CA3 PO; +LISI-338 PO; +OMEP20CA9 PO; +PIOG15TA69 PO; +SIMV10TA3 PO; +SULF1TAB24 PO; +VARE1TAB21 PO; +VORT20TA PO
--- NOTE | 2017-06-16 11:42 | RAD ---
DATE: 06/16/2017 EXAM: DIGITAL SCREEN BILAT W/CAD HISTORY: Routine screening COMPARISON: 06/03/2016 This study was interpreted with the benefit of Computerized Aided Detection (CAD). FINDINGS: Breast Density: HETERO The breast parenchyma Is heterogeneiously dense, which could reduce sensitivity of mammography. Breast parenchyma level C. There are no dominant suspicious masses, suspicious microcalcifications or evidence of architectural distortion. Benign-appearing calcifications identified in the right upper outer breast similar to prior exam. IMPRESSION: Benign findings BI-RADS CATEGORY: 2 BENIGN FINDING RECOMMENDED FOLLOW-UP: 12M 12 MONTH FOLLOW-UP PQRS compliance statement: Patient information was entered into a reminder system with a target due date 06/16/2018 for the next mammogram. Mammography is a sensitive method for finding small breast cancers, but it does not detect them all and is not a substitute for careful clinical examination. A negative mammogram does not negate a clinically suspicious finding and should not result in delay in biopsying a clinically suspicious abnormality. "Our facility is accredited by the [employer] Mammography Program."
== END | disposition home or self-care (01) ==
LOC: MAMMO 10:15
PROVIDERS: ATTEND Physician Assistant
DX: Z12.31 Encounter for screening mammogram for malignant neoplasm of breast (principal)
CPT/HCPCS: G0202; 77067

== ENCOUNTER 2017-07-24 21:54 | Emergency (ER) | payer OTHER ==
[~2017-07-24] VITALS: Ht 157.5 cm; Wt 52.2 kg
[2017-07-24 22:41] LABS: BASO % 1 % (0-3); EOS # 0.1 x10^3/uL (0.0-0.7); EOS % 2 % (0-3); HEMATOCRIT 38.6 % (36.0-47.0); HEMOGLOBIN 13.1 g/dL (12.0-15.5); LYMPH # 2.7 x10^3/uL (1.0-4.8); LYMPH % 45 % (24-48); MEAN CORPUSCULAR HEMOGLOBIN 31 pg (25-35); MEAN CORPUSCULAR HGB CONC 34 g/dL (31-37); MEAN CORPUSCULAR VOLUME 91 fL (79-100); MONO # 0.5 x10^3/uL (0.0-1.1); MONO % 8 % (0-9); NEUT # 2.6 x10^3uL (1.8-7.7); NEUT % 44 % (31-73); PLATELET COUNT 245 x10^3/uL (140-400); RED BLOOD COUNT 4.24 x10^6/uL (3.50-5.40); RED CELL DISTRIBUTION WIDTH 14.8 % (11.5-14.5); WHITE BLOOD COUNT 5.9 x10^3/uL (4.0-11.0)
[2017-07-24 22:41] LABS: BILIRUBIN,URINE NEG (NEG); CLARITY,URINE HAZY; COLOR,URINE YELLOW; GLUCOSE,URINE NEG (NEG); NITRITE,URINE NEG (NEG); UROBILINOGEN,URINE 0.2 mg/dL (0.2 mg/dL)
[2017-07-24 22:48] LABS: CALCIUM 8.8 mg/dL (8.5-10.1); CREATININE 0.9 mg/dL (0.6-1.0); GFR 66.3; POTASSIUM 4.5 mmol/L (3.5-5.1)
[2017-07-24 22:53] LABS: BACTERIA,URINE 0 /HPF (0-FEW); SQUAMOUS EPITHELIAL CELL,UR MANY /LPF
[2017-07-25] VITALS: BP 131/66
--- NOTE | 2017-07-25 | PHYS DOC ---
Past History Past Medical History: Diabetes, Other Past Surgical History: , Hysterectomy, Tonsillectomy Smoking: Cigarettes, Less than 1pk/day Alcohol Use: None Drug Use: None Adult General Chief Complaint Chief Complaint: HYPOTENSION HPI HPI Patient is a 52 year old F who presents with dizziness and presumed hypotension. Shellie has had multiple episodes of low blood pressure resulting in dizziness. Yesterday she had an episode which resulted in syncope. She did not have a syncopal episode today. She denies other associated symptoms. She feels that her dizziness is worsened with change in position. She denies any known alleviating factors. She did have an echocardiogram done within the past week by her booker Dr. Vasquez. She also has had a normal cardiac catheterization screening within the past 6 months. She has had no medication changes other than increasing her lisinopril from 5 mg to 10 mg approximately one month ago Review of Systems Review of Systems Constitutional: Denies fever or chills [] Eyes: Denies change in visual acuity, redness, or eye pain [] HENT: Denies nasal congestion or sore throat [] Respiratory: Denies cough or shortness of breath [] Cardiovascular: No additional information not addressed in HPI [] GI: Denies abdominal pain, nausea, vomiting, bloody stools or diarrhea [] : Denies dysuria or hematuria [] Musculoskeletal: Denies back pain or joint pain [] Integument: Denies rash or skin lesions [] Neurologic: Denies headache, focal weakness or sensory changes [] Endocrine: Denies polyuria or polydipsia [] Family History Family History Her father from cardiac disease at the age of 41 Current Medications Current Medications Medications reviewed Allergies Allergies Allergies Coded Allergies Type Severity Reaction Last Updated Verified amoxicillin Allergy Intermediate 05/07/17 Yes erythromycin base Allergy Intermediate STOMACH PAIN 05/08/15 Yes Physical Exam Physical Exam Constitutional: Well developed, well nourished, no acute distress, non-toxic appearance. [] HENT: Normocephalic, atraumatic, bilateral external ears normal, oropharynx moist, no oral exudates, nose normal. [] Eyes: EOMI, conjunctiva normal, no discharge. [] Neck: Normal range of motion, no tenderness, supple, no stridor. [] Cardiovascular:Heart rate regular rhythm, no murmur [] Lungs & Thorax: Bilateral breath sounds clear to auscultation [] Abdomen: Bowel sounds normal, soft, no tenderness, no masses, no pulsatile masses. [] Skin: Warm, dry, no erythema, no rash. [] Bruising noted on the right forearm, left dorsal foot with occasional abrasions noted on upper and lower extremities Back: No tenderness, no CVA tenderness. [] Extremities: No tenderness, no cyanosis, no clubbing, ROM intact, no edema. [] Neurologic: Alert and oriented X 3, normal motor function, normal sensory function, no focal deficits noted. [] Psychologic: Affect normal, judgement normal, mood normal. [] Current Patient Data Vital Signs Vital Signs Date Time Temp Pulse Resp B/P (MAP) Pulse Ox O2 Delivery O2 Flow Rate FiO2 07/24/17 23:30 80 20 112/60 (77) 97 Room Air 07/24/17 22:07 97.5 Lab Results Laboratory Tests Test 07/24/17 22:20 07/24/17 22:28 White Blood Count 5.9 x10^3/uL (4.0-11.0) Red Blood Count 4.24 x10^6/uL (3.50-5.40) Hemoglobin 13.1 g/dL (12.0-15.5) Hematocrit 38.6 % (36.0-47.0) Mean Corpuscular Volume 91 fL (79-100) Mean Corpuscular Hemoglobin 31 pg (25-35) Mean Corpuscular Hemoglobin Concent 34 g/dL (31-37) Red Cell Distribution Width 14.8 % (11.5-14.5) H Platelet Count 245 x10^3/uL (140-400) Neutrophils (%) (Auto) 44 % (31-73) Lymphocytes (%) (Auto) 45 % (24-48) Monocytes (%) (Auto) 8 % (0-9) Eosinophils (%) (Auto) 2 % (0-3) Basophils (%) (Auto) 1 % (0-3) Neutrophils # (Auto) 2.6 x10^3uL (1.8-7.7) Lymphocytes # (Auto) 2.7 x10^3/uL (1.0-4.8) Monocytes # (Auto) 0.5 x10^3/uL (0.0-1.1) Eosinophils # (Auto) 0.1 x10^3/uL (0.0-0.7) Basophils # (Auto) 0.0 x10^3/uL (0.0-0.2) Sodium Level 139 mmol/L (136-145) Potassium Level 4.5 mmol/L (3.5-5.1) Chloride Level 102 mmol/L (98-107) Carbon Dioxide Level 27 mmol/L (21-32) Anion Gap 10 (6-14) Blood Urea Nitrogen 16 mg/dL (7-20) Creatinine 0.9 mg/dL (0.6-1.0) Estimated GFR (Cockcroft-Gault) 66.3 Glucose Level 141 mg/dL (70-99) H Calcium Level 8.8 mg/dL (8.5-10.1) Urine Collection Type Unknown Urine Color Yellow Urine Clarity Hazy Urine pH 5.5 Urine Specific [place] 1.025 Urine Protein Neg (NEG-TRACE) Urine Glucose (UA) Neg mg/dL (NEG) Urine Ketones (Stick) Trace mg/dL (NEG) Urine Blood Neg (NEG) Urine Nitrite Neg (NEG) Urine Bilirubin Neg (NEG) Urine Urobilinogen Dipstick 0.2 mg/dL (0.2 mg/dL) Urine Leukocyte Esterase Neg (NEG) Urine RBC 1-2 /HPF (0-2) Urine WBC 5-10 /HPF (0-4) Urine Squamous Epithelial Cells Many /LPF Urine Bacteria 0 /HPF (0-FEW) Urine Mucus Slight /LPF EKG EKG Normal sinus rhythm, no ST changes, normal QRS interval Radiology/Procedures Radiology/Procedures [] Course & Med Decision Making Course & Med Decision Making Pertinent Labs and Imaging studies reviewed. (See chart for details) Dr. Vasquez was contacted by phone and citizens case was reviewed. Her echocardiogram was reviewed. Her symptoms did resolve without intervention. Dr. Vasquez states that based on her presentation and findings he is comfortable with discharge and follow-up in clinic tomorrow. There are no signs of any emergency medical conditions during her stay in the emergency room Dragon Disclaimer Dragon Disclaimer This chart was dictated in whole or in part using Voice Recognition software in a busy, high-work load, and often noisy Emergency Department environment. It may contain unintended and wholly unrecognized errors or omissions. Departure Departure: Impression: Primary Impression: Dizzy Disposition: 01 HOME, SELF-CARE Condition: STABLE Referrals: STEPHEN STEVENS (PCP) Patient Instructions: Dizziness Additional Instructions: Shellie was seen in the emergency department for dizziness. No emergency medical condition was found on history or physical exam. She did have normal labs and a normal EKG. Her booker, Dr. Vasquez, was spoken to by phone in order to review her case. She does have an appointment with Dr. Guaman tomorrow. He stated that he feels comfortable with her going home tonight. She was strongly advised to return to the emergency room if she develops new or worsening symptoms. She is advised follow-up with Dr. Vasquez as scheduled. ZACH SANCHES MD Jul 25, 2017 00:00
--- NOTE | 2017-07-25 03:10 | EKG ---
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
== END 2017-07-25 00:12 | disposition home or self-care (01) ==
LOC: ER 21:54
DX: R42 Dizziness and giddiness (principal); I95.9 Hypotension, unspecified; S50.11XA Contusion of right forearm, initial encounter; E11.9 Type 2 diabetes mellitus without complications; F17.210 Nicotine dependence, cigarettes, uncomplicated; Z88.1 Allergy status to other antibiotic agents; X58.XXXA Exposure to other specified factors, initial encounter; Y93.89 Activity, other specified; Y99.8 Other external cause status; Y92.89 Other specified places as the place of occurrence of the external cause
CPT/HCPCS: 36415; 80048; 81001; 85025; 87086; 93005; 99285-25

== ENCOUNTER 2017-08-26 16:44 | Emergency (ER) | payer SELFPAY ==
[~2017-08-26] VITALS: Ht 157.5 cm; Wt 52.2 kg
[2017-08-26 16:44] VITALS: BP 156/80
--- NOTE | 2017-08-26 17:37 | RAD ---
CT head without contrast 08/26/2017 CLINICAL INDICATION: Right-sided headache. COMPARISON: CT head 05/07/2017, 06/28/2015. TECHNIQUE: Multiple CT images of the head were obtained without contrast. *One or more of the following individualized dose reduction techniques were utilized for this examination: 1. Automated exposure control. 2. Adjustment of the mA and/or kV according to patient size. 3. Use of iterative reconstruction technique. FINDINGS: The ventricles and subarachnoid spaces are normal in size and configuration. No midline shift or mass effect. No acute intracranial hemorrhage or extra-axial fluid collection. No midline shift the basal cisterns are patent. Unremarkable review of the bone windows. IMPRESSION: No acute intracranial hemorrhage. Electronically signed by: Adam Skinner MD (08/26/2017 5:33 PM) [facility]
--- NOTE | 2017-08-26 18:52 | PHYS DOC ---
General Chief Complaint: HEADACHE Stated Complaint: H/A Time Seen by MD: 18:52 Source: patient, RN/MD Exam Limitations: no limitations Problems: History of Present Illness Initial Comments Patient was signed out to me by outgoing emergency department physician at 1800 shift change as having severe "worst of life" migraine headache, CT of the head had been ordered and results were pending. Patient states she awoke with a severe right-sided headache and felt like her right eye with swelling throughout the day. The pain was spreading to her right ear and down her right neck described as sharp and throbbing severe no exacerbating or relieving factors. Patient denies any trauma she denies any focal neurologic deficits, no vision changes or pain with extraocular motion. She denies any foreign body sensation tearing or matting. She did complain of photophobia and nausea but no vomiting. ED vital signs were stable. Timing/Duration: getting worse, other Severity: severe Modifying Factors: improves with other Associated Symptoms: headaches, other Allergies: Coded Allergies: amoxicillin (Verified Allergy, Intermediate, 05/07/17) erythromycin base (Verified Allergy, Intermediate, STOMACH PAIN, 05/08/15) Past Medical History Medical History: arthritis, diabetes, high cholesterol, hypertension, migraines , other (GERD, mitral valve regurg, irritable bowel syndrome) Surgical History: tonsillectomy, other Psychosocial History: anxiety, bipolar, depression Social History Smoker: cigarettes Alcohol: none Drugs: none Review of Systems Constitutional: denies chills, denies diaphoresis, denies fever, denies malaise EENTM: see HPI, denies ear pain, denies ear discharge, denies nose congestion, denies throat pain, denies mouth pain Respiratory: denies cough, denies shortness of breath, denies wheezing Cardiovascular: denies chest pain, denies palpitations, denies syncope Gastrointestinal: denies abdominal pain, denies diarrhea, nausea, denies vomiting Genitourinary: denies dysuria, denies frequency, denies hematuria Musculoskeletal: denies back pain, denies joint swelling, denies neck pain Psychiatric/Neurological: see HPI, headache, denies numbness, denies paresthesia, denies weakness Physical Exam General Appearance: moderate distress Eyes: bilateral eye normal inspection, bilateral eye PERRL, bilateral eye EOMI Ear, Nose, Throat: hearing grossly normal, normal ENT inspection, normal pharynx Neck: non-tender, supple Respiratory: lungs clear, normal breath sounds Cardiovascular: normal peripheral pulses, regular rate, rhythm Gastrointestinal: non tender, soft Back: no CVA tenderness, no vertebral tenderness Extremities: normal range of motion, non-tender, normal inspection Neurologic/Psychiatric: 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 PHYSICIAN: ZACH SANCHES MD REASON: headache PROCEDURE: CT HEAD WO CONTRAST CT head without contrast 08/26/2017 CLINICAL INDICATION: Right-sided headache. COMPARISON: CT head 05/07/2017, 06/28/2015. TECHNIQUE: Multiple CT images of the head were obtained without contrast. *One or more of the following individualized dose reduction techniques were utilized for this examination: 1. Automated exposure control. 2. Adjustment of the mA and/or kV according to patient size. 3. Use of iterative reconstruction technique. FINDINGS: The ventricles and subarachnoid spaces are normal in size and configuration. No midline shift or mass effect. No acute intracranial hemorrhage or extra-axial fluid collection. No midline shift the basal cisterns are patent. Unremarkable review of the bone windows. IMPRESSION: No acute intracranial hemorrhage. Electronically signed by: Zee Skinner MD (08/26/2017 5:33 PM) [facility] DICTATED AND SIGNED BY: ZEE SKINNER MD DATE: 08/26/171731 CC: STEPHEN STEVENS; ZACH SANCHES MD ~ 2035: Patient received sumatriptan, Benadryl, Phenergan and Haldol in the emergency department. Patient rechecked by me 1 hour after receiving those medications and she now has a visitor and is resting comfortably sitting up and talking. She has been tolerating fluids by mouth denies any further nausea and reports that her headache and eye symptoms have resolved. I discussed prescription and [id number] medications as well as signs and symptoms to monitor. I discussed close PCP follow-up the patient's questions were answered and she expressed agreement and understanding with treatment plan. Departure Time of Disposition: 20:37 Disposition: 01 HOME, SELF-CARE Diagnosis: migraine headache Condition: IMPROVED Patient Instructions: Migraine Headache, [id number] Additional Instructions: Please review the patient education materials given by ED staff. No driving or operating machinery while under the influence of sedative medications. [id number] Tylenol and ibuprofen as needed. Drink plenty of fluids to avoid dehydration which could make headache symptoms worse. Prescription: Sumatriptan, Zofran ODT Follow-up with your doctor on Tuesday for recheck. Return to ED with new or changing symptoms. BERE CHERRY DO Aug 26, 2017 18:52
[2017-08-26] MEDS ORDERED: PROMETHAZINE 25 MG/ML VIAL IV ONE (19:13)
[2017-08-26] MEDS ORDERED: IV NORMAL SALINE 50ML 50 ML ONE (19:14)
[2017-08-26] MEDS ORDERED: PROMETHAZINE 12.5 MG in IV NORMAL SALINE 50ML 50 ML IV PRN (19:15)
[2017-08-26] MEDS ORDERED: diphenhydrAMINE 50 MG/ML VIAL IVP ONE (19:30)
[2017-08-26] MEDS ORDERED: HALOPERIDOL LACT 5 MG/ML VIAL. IVP ONE (19:30)
[2017-08-26] MEDS ORDERED: SUMAtriptan. 6 MG/0.5 ML VIAL SQ ONE (19:30)
[2017-08-26] MEDS ORDERED: SUMA100T4 PO (20:36)
[2017-08-26] MEDS ORDERED: ONDA4TAB10 PO (20:36)
[2017-08-26] MEDS ORDERED: ONDANSETRON 4MG ODT 4TABLET STARTPACK. PO ONE (20:45)
== END 2017-08-26 20:45 | disposition home or self-care (01) ==
LOC: ER 16:44
DX: G43.909 Migraine, unspecified, not intractable, without status migrainosus (principal); E11.9 Type 2 diabetes mellitus without complications; E78.00 Pure hypercholesterolemia, unspecified; I10 Essential (primary) hypertension; K21.9 Gastro-esophageal reflux disease without esophagitis; K58.9 Irritable bowel syndrome, unspecified; F41.9 Anxiety disorder, unspecified; F31.9 Bipolar disorder, unspecified; F17.210 Nicotine dependence, cigarettes, uncomplicated; Z88.1 Allergy status to other antibiotic agents
CPT/HCPCS: 70450; 96365; 96372; 96375; 99284; J1200; J1630; J2550; J3030; Q0162

== ENCOUNTER 2017-09-30 14:04 | Emergency (ER) | payer SELFPAY ==
[~2017-09-30] VITALS: Ht 157.5 cm; Wt 52.2 kg
[~2017-09-30 14:04] MED LIST changes: +ONDA4TAB10 PO; +SUMA100T4 PO
--- NOTE | 2017-09-30 14:14 | PHYS DOC ---
Past History Past Medical History: Anxiety, Bipolar, Depression, Diabetes, GERD, High Cholesterol, Hypertension, Other Past Surgical History: , Hysterectomy, Tonsillectomy, Other Smoking: Cigarettes, Less than 1pk/day Alcohol Use: None Drug Use: None Adult General Chief Complaint Chief Complaint: Blood pressure problems and shortness of breath HPI HPI Patient is a 52 year old F who presents with labile blood pressure. She also states that she has had shortness of breath and a "weird feeling in her legs." She is not currently on blood pressure medication. She is working with her waredresser to get her medications. She was advised to do a halter monitor but has not done that yet. She also has anxiety. She state that this happens when her blood pressure is high Review of Systems Review of Systems Constitutional: Denies fever or chills [] Eyes: Denies change in visual acuity, redness, or eye pain [] HENT: Denies nasal congestion or sore throat [] Respiratory: Denies cough or shortness of breath [] Cardiovascular: No additional information not addressed in HPI [] GI: Denies abdominal pain, nausea, vomiting, bloody stools or diarrhea [] : Denies dysuria or hematuria [] Musculoskeletal: Denies back pain or joint pain [] Integument: Denies rash or skin lesions [] Neurologic: Denies headache, focal weakness or sensory changes [] Endocrine: Denies polyuria or polydipsia [] All other systems were reviewed and found to be within normal limits, except as documented in this note. Family History Family History No Pertinent family medical history was reported Current Medications Current Medications No current medications Allergies Allergies Allergies Coded Allergies Type Severity Reaction Last Updated Verified amoxicillin Allergy Intermediate 05/07/17 Yes erythromycin base Allergy Intermediate STOMACH PAIN 05/08/15 Yes Physical Exam Physical Exam Constitutional: Well developed, well nourished, no acute distress, non-toxic appearance. [] HENT: Normocephalic, Eyes: EOMI, conjunctiva normal, no discharge. [] Neck: Normal range of motion, no tenderness, supple, no stridor. [] Cardiovascular:Heart rate regular rhythm, Lungs & Thorax: Bilateral breath sounds clear to auscultation [] Abdomen: Bowel sounds normal, soft, no tenderness, no masses, no pulsatile masses. [] Skin: Warm, dry, no erythema, no rash. [] Extremities: No tenderness, no cyanosis, no clubbing, ROM intact, no edema. [] Neurologic: Alert and oriented X 3, normal motor function, normal sensory function, no focal deficits noted. [] Psychologic: Affect normal, judgement normal, mood normal. [] Current Patient Data Vital Signs Vital Signs Date Time Temp Pulse Resp B/P (MAP) Pulse Ox O2 Delivery O2 Flow Rate FiO2 09/30/17 14:29 94 18 159/78 (105) 100 Room Air 09/30/17 14:15 98.0 103 18 100 Room Air EKG EKG Normal sinus rhythm Radiology/Procedures Radiology/Procedures [] Course & Med Decision Making Course & Med Decision Making Pertinent Labs and Imaging studies reviewed. (See chart for details) [] Dragon Disclaimer Dragon Disclaimer This electronic medical record was generated, in whole or in part, using a voice recognition dictation system. Departure Departure: Impression: Primary Impression: Encounter for medical screening examination Disposition: HOME, SELF-CARE Condition: STABLE Referrals: STEPHEN STEVENS (PCP) Patient Instructions: Medical Screening Exam Additional Instructions: Shellie was seen in the emergency department for blood pressure problems. No emergency medical condition was found on history or physical exam. She is advised follow-up with her primary care doctor as soon as possible for further management. ZACH SANCHES MD Sep 30, 2017 14:14
[2017-09-30 15:00] VITALS: BP 141/72
--- NOTE | 2017-09-30 16:08 | EKG ---
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
== END 2017-09-30 15:01 | disposition home or self-care (01) ==
LOC: ER 14:04
DX: I10 Essential (primary) hypertension (principal); F41.9 Anxiety disorder, unspecified; F31.9 Bipolar disorder, unspecified; E11.9 Type 2 diabetes mellitus without complications; K21.9 Gastro-esophageal reflux disease without esophagitis; E78.00 Pure hypercholesterolemia, unspecified; F17.210 Nicotine dependence, cigarettes, uncomplicated; Z88.1 Allergy status to other antibiotic agents
CPT/HCPCS: 93005; 99283-25

== ENCOUNTER 2018-10-11 17:36 | Emergency (ER) | payer MEDICAID, OTHER ==
[~2018-10-11] VITALS: Ht 157.5 cm; Wt 61.0 kg
[~2018-10-11 17:36] MED LIST changes: -ATEN25TA PO; +ATEN25TA42 PO; +BREX2TAB PO; +CLON1TAB11 PO; -CLON1TAB3 PO; -CLON2TAB2 PO; +CLON2TAB9 PO; +DIVA-53 PO; -DIVA500T9 PO; +LINA290C PO; -METF10002 PO; +METF10007 PO; +METF500T16 PO; -METF500T4 PO; +PARO40TA61 PO; +PIOG15TA63 PO; -PIOG15TA69 PO; +POLY17PO5 PO
[2018-10-11 18:02] VITALS: BP 116/65
--- NOTE | 2018-10-11 18:24 | PHYS DOC ---
Past History Past Medical History: CAD, Depression, Diabetes, MRSA Past Surgical History: No Surgical History Smoking: Cigarettes, Less than 1pk/day Additional Smoking Information: 09/20 PPD Alcohol Use: None Drug Use: None Adult General Chief Complaint Chief Complaint: SKIN PROBLEM [facility] HPI 53-year-old female presents with rash on her bilateral lower extremities. She states she's had this rash since January. Her small open sores in a scattered distribution on both legs below the knees. Patient states they just don't heal. She is concerned about infection. She was prescribed triamcinolone 0.5% but feels like it may have made a couple of them worse. The patient is a type II diabetic and she does not know her blood sugars are running. She is also a smoker. Patient sleeps in the Declan's to go down her knees and long sleeve shirt. The only exposed skin adenitis or lower extremities below the knees. She denies fever or chills. These lesions are in various stages of healing. Review of Systems Review of Systems Constitutional: Denies fever or chills [] Eyes: Denies change in visual acuity, redness, or eye pain [] HENT: Denies nasal congestion or sore throat [] Respiratory: Denies cough or shortness of breath [] Cardiovascular: No additional information not addressed in HPI [] GI: Denies abdominal pain, nausea, vomiting, bloody stools or diarrhea [] : Denies dysuria or hematuria [] Musculoskeletal: Denies back pain or joint pain [] Integument: Rash on bilateral lower extremities[] Neurologic: Denies headache, focal weakness or sensory changes [] Endocrine: Denies polyuria or polydipsia [] All other systems were reviewed and found to be within normal limits, except as documented in this note. Allergies Allergies Allergies Coded Allergies Type Severity Reaction Last Updated Verified amoxicillin Allergy Intermediate 05/07/17 Yes erythromycin base Allergy Intermediate STOMACH PAIN 05/08/15 Yes Physical Exam Physical Exam Constitutional: Well developed, well nourished, no acute distress, non-toxic appearance. [] HENT: Normocephalic, atraumatic, bilateral external ears normal, oropharynx moist, no oral exudates, nose normal. [] Eyes: PERRLA, EOMI, conjunctiva normal, no discharge. [] Neck: Normal range of motion, no tenderness, supple, no stridor. [] Cardiovascular:Heart rate regular rhythm, no murmur [] Lungs & Thorax: Bilateral breath sounds clear to auscultation [] Abdomen: Bowel sounds normal, soft, no tenderness, no masses, no pulsatile masses. [] Skin: Small open sores on the bilateral lower extremities below the knees. They' re consistent with insect bites and picking. No surrounding erythema or warmth.[ ] Back: No tenderness, no CVA tenderness. [] Extremities: No tenderness, no cyanosis, no clubbing, ROM intact, no edema. [] Neurologic: Alert and oriented X 3, normal motor function, normal sensory function, no focal deficits noted. [] Psychologic: Affect normal, judgement normal, mood normal. [] Current Patient Data Vital Signs Vital Signs Date Time Temp Pulse Resp B/P (MAP) Pulse Ox O2 Delivery O2 Flow Rate FiO2 10/11/18 18:02 98.1 86 16 98 Room Air EKG EKG [] Radiology/Procedures Radiology/Procedures [] Course & Med Decision Making Course & Med Decision Making Pertinent Labs and Imaging studies reviewed. (See chart for details) The patient is being bit by some form of insect. I have advised that she have an insect inspection of her home. I do believe the triamcinolone is an appropriate treatment. I also advised she could make an appointment with dermatology. The patient is stable for discharge at this time. [] Dragon Disclaimer Dragon Disclaimer This electronic medical record was generated, in whole or in part, using a voice recognition dictation system. 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
== END 2018-10-11 18:30 | disposition home or self-care (01) ==
LOC: ER 17:36
DX: S80.862A Insect bite (nonvenomous), left lower leg, initial encounter (principal); S80.861A Insect bite (nonvenomous), right lower leg, initial encounter; E11.9 Type 2 diabetes mellitus without complications; I25.10 Atherosclerotic heart disease of native coronary artery without angina pectoris; F17.210 Nicotine dependence, cigarettes, uncomplicated; Z86.14 Personal history of Methicillin resistant Staphylococcus aureus infection; Z88.1 Allergy status to other antibiotic agents; W57.XXXA Bitten or stung by nonvenomous insect and other nonvenomous arthropods, initial encounter; Y93.89 Activity, other specified; Y92.89 Other specified places as the place of occurrence of the external cause; Y99.8 Other external cause status
CPT/HCPCS: 99281

== ENCOUNTER → 2018-11-17 | Outpatient (CLI) | payer MEDICARE, OTHER ==
--- NOTE | 2018-11-17 17:13 | RAD ---
Examination: Ultrasound abdomen complete and ultrasound pelvis HISTORY: History of pelvic pain, abdominal pain COMPARISON: None available FINDINGS: The liver length measures 19.9 cm. There is increased echogenicity noted throughout the liver likely hepatic steatosis. The visualized pancreas grossly appears unremarkable. The gallbladder wall thickness measures 1.9 mm. The common bile duct measures 3.8 mm in transverse dimension. The right kidney measures 10.7 cm in length. The left kidney 9.8 cm in length. The visualized pancreas grossly appears unremarkable. The visualized aorta, IVC within normal limits of dimension. The spleen is within normal limits of dimension. Examination is limited due to bowel gas. The uterus is not identified likely prior hysterectomy changes. No evidence of flow significant of fluid identified in the cul-de-sac. The right ovary could not be identified The left ovary measures 1.8 x 1.8 x 1.4 cm Examination limited due to bowel gas Impression: 1. Hepatomegaly with hepatic steatosis. 2. No evidence of gallstones. 3. Very limited examination due to bowel gas. Changes of hysterectomy. Right ovary could not be identified. Electronically signed by: Randy Coronado MD (11/17/2018 5:10 PM) [id number]
== END | disposition home or self-care (01) ==
LOC: US 12:07
PROVIDERS: ATTEND Registered Nurse
DX: K76.0 Fatty (change of) liver, not elsewhere classified (principal); R16.0 Hepatomegaly, not elsewhere classified
CPT/HCPCS: 76700; 76830; 76856

== ENCOUNTER 2021-12-10 12:41 | Emergency (ER) | payer MEDICARE, OTHER ==
[~2021-12-10] VITALS: Ht 157.5 cm; Wt 61.0 kg
[~2021-12-10 12:41] MED LIST changes: -LISI-334 PO; -LISI-338 PO; +LISI20TA18 PO; +LISI5TAB15 PO; +OMEP20CA16 PO; -OMEP20CA9 PO; +SIMV10TA15 PO; -SIMV10TA3 PO; +SIMV40TA18 PO; -SIMV40TA3 PO
[2021-12-10 12:55] VITALS: BP 160/65
--- NOTE | 2021-12-10 13:06 | PHYS DOC ---
Past History Past Medical History: CAD, Depression, Diabetes, MRSA Past Surgical History: No Surgical History Smoking: Cigarettes, Less than 1pk/day Alcohol Use: None Drug Use: None General Adult EDM: Chief Complaint: INSECT BITE HPI: HPI: Patient is a 56 year old diabetic female who presents with insect bite. Patient reports she noticed the insect bite on her hand about 1 week ago. Since that time, she has noted new raised and red lesions pop up sporadically. Patient does have urticarial, flat, red rash across her forehead, cheeks and neck. Patient reports similar symptoms a couple years ago. She lives currently with her ex-, who was not experiencing any similar symptoms. Patient denies dyspnea, cough, oral swelling, macroglossia, nausea/vomiting, fever, chills. Review of Systems: Review of Systems: Constitutional: Denies fever, chills or generalized weakness Eyes: Denies change in visual acuity, visual field deficits or discharge HENT: Denies ear pain, nasal congestion or sore throat Respiratory: Denies cough or shortness of breath Cardiovascular: Denies chest pain, palpitations or edema GI: Denies abdominal pain, nausea, vomiting, bloody stools or diarrhea : Denies dysuria or hematuria Musculoskeletal: Denies back pain or joint pain Integument: See HPI Neurologic: Denies headache, focal weakness or sensory changes Allergies: Allergies: Allergies Coded Allergies Type Severity Reaction Last Updated Verified amoxicillin Allergy Intermediate 05/07/17 Yes erythromycin base Allergy Intermediate STOMACH PAIN 05/08/15 Yes Physical Exam: PE: Constitutional: Well developed, well nourished, no acute distress, non-toxic appearance. HENT: Normocephalic, atraumatic, bilateral external ears normal, oropharynx moist, no oral exudates, no oropharyngeal swelling, nose normal. Eyes: EOMI, conjunctiva normal, no discharge. Neck: Normal range of motion, no stridor. Skin: Left hand in the dorsal region near the webspace between digits 1 and 2 has a less than 1 cm diameter vesicular lesion, sporadic but diffuse papular lesions noted across face and extremities without vesicles. Skin otherwise warm, dry, no erythema. Extremities: No cyanosis, no clubbing, ROM intact, no edema. Neurologic: Alert and oriented x4, normal motor function, normal sensory function, no focal deficits noted. Current Patient Data: Labs: Laboratory Tests Test 12/10/21 13:26 Glucose (Fingerstick) 158 mg/dL (70-99) Vital Signs: Vital Signs Date Time Temp Pulse Resp B/P (MAP) Pulse Ox O2 Delivery O2 Flow Rate FiO2 12/10/21 12:55 97.9 105 20 160/65 (96) 99 Heart Score: C/O Chest Pain: No Course & Med Decision Making: Course & Med Decision Making Pertinent Labs and Imaging studies reviewed. (See chart for details) 56-year-old female who presents with an insect bite and urticarial diffuse rash will be treated with Benadryl and dexamethasone. Patient is advised to monitor her blood sugar closely over the next 3-5 days secondary to steroid use. Patient advised to call her primary care provider today or tomorrow to set up a follow-up appointment for early next week. If her symptoms do not resolve by th at time, primary care should be able to further evaluate and treat. Return precautions were provided. Patient understands and is agreeable to discharge plan. She is hemodynamically stable on discharge with heart rate below 100. Dragon Disclaimer: DragAngleWare Disclaimer: This electronic medical record was generated, in whole or in part, using a voice recognition dictation system. Departure Departure: Impression: Primary Impression: Papular urticaria Additional Impression: Insect bite (nonvenomous) of left hand, initial encounter Disposition: HOME / SELF CARE / HOMELESS Condition: STABLE Referrals: STEPHEN STEVENS (PCP) Patient Instructions: Insect Bite, Anax-[id number], Rash, [id number] Additional Instructions: EMERGENCY DEPARTMENT GENERAL DISCHARGE INSTRUCTIONS Thank you for coming to [facility] (ED) today and trusting us with you care. We trust that you had a positive experience in our Emergency Department. If you wish to speak to the department management, you may call the director at [phone]. YOUR FOLLOW UP INSTRUCTIONS ARE FOLLOWS: 1. Follow up with your primary care doctor. If you do not have a primary do ctor, please ask for a resource list of physicians or clinics that may be able to assist you with follow up care. 2. The emergency provider has interpreted your imaging studies, if any were ordered. The radiology travel specialist also reviewed them. If there is a change in the findings, you will be notified in 48 hours when at all possible. 3. If a lab test or culture has been done, your results will be reviewed and you will be notified if you need a change in treatment. 4. MONITOR YOUR BLOOD SUGAR CLOSELY FOR THE NEXT 3-5 DAYS. Follow instructions verbalized to you and refer to the printouts if needed. ADDITIONAL INSTRUCTIONS AND INFORMATION: 1. Your care today has been supervised by a physician who is specially trained in emergency care. Many problems require more than one evaluation for a complete diagnosis and treatment. We recommend that you schedule your follow up appointment as recommended to ensure complete treatment of you illness or injury. If you are unable to obtain follow up care and continue to have a problem, or if your condition worsens, we recommend that you return to the ED. 2. We are not able to safely determine your condition over the phone nor are we able to give sound medical advice over the phone. For these safety reasons, if you call for medical advice we will ask you to come to the ED for further evaluation. 3. If you have any questions regarding these discharge instructions please call the ED at [phone]. SAFETY INFORMATION: In the interest of safety, wellness, and injury prevention; we encourage you to wear your seat belt, if you smoke; quite smoking, and we encourage family to use a protective helmet for bicycling and other sporting events that present an increased risk for head injury. IF YOUR SYMPTOMS WORSEN OR NEW SYMPTOMS DEVELOP, OR YOU HAVE CONCERNS ABOUT YOUR CONDITION; OR IF YOUR CONDITION WORSENS WHILE YOU ARE WAITING FOR YOUR FOLLOW UP APPOINTMENT; EITHER CONTACT YOUR PRIMARY CARE DOCTOR, THE PHYSICIAN WHOSE NAME AND NUMBER YOU WERE GIVEN, OR RETURN TO THE ED IMMEDIATELY. JASPREET SILVERIO Dec 10, 2021 13:06
[2021-12-10] MEDS ORDERED: DEXAMETHASONE 4 MG TABLET PO ONE (13:15)
[2021-12-10] MEDS ORDERED: diphenhydrAMINE HCL 25 MG CAPSULE PO ONE (13:15)
== END 2021-12-10 13:32 | disposition home or self-care (01) ==
LOC: ER 12:41
DX: S60.562A Insect bite (nonvenomous) of left hand, initial encounter (principal); L50.8 Other urticaria; I25.10 Atherosclerotic heart disease of native coronary artery without angina pectoris; E11.9 Type 2 diabetes mellitus without complications; Z86.14 Personal history of Methicillin resistant Staphylococcus aureus infection; F17.210 Nicotine dependence, cigarettes, uncomplicated; Z88.1 Allergy status to other antibiotic agents; W57.XXXA Bitten or stung by nonvenomous insect and other nonvenomous arthropods, initial encounter; Y93.89 Activity, other specified; Y92.89 Other specified places as the place of occurrence of the external cause; Y99.8 Other external cause status
CPT/HCPCS: 82947; 99283; J8540; Q0163

== ENCOUNTER 2022-01-23 16:48 | Emergency (ER) | payer MEDICARE, OTHER ==
[~2022-01-23] VITALS: Ht 157.5 cm; Wt 57.4 kg
[2022-01-23] MEDS ORDERED: MORPHINE SULFATE 4 MG/ML DISP.SYRIN. IV ONE (17:30)
[2022-01-23] MEDS ORDERED: ONDANSETRON PF 4 MG/2 ML VIAL. IVP ONE (17:30)
--- NOTE | 2022-01-23 17:44 | EKG ---
[address] [address] Test Date: 2022-01-23 Test Time: 17:38:13 Pat Name: DESTINEE HAYWOODN Department: Room: Gender: F Qualification Engineer: MATI : [id number] Requested By: CELY EASLEY Order Number: [id number] Reading MD: Lupillo Henderson MD Measurements Intervals [place] Rate: 90 P: 44 RI: 114 QRS: 34 QRSD: 86 T: 43 QT: 354 QTc: 437 Interpretive Statements SINUS RHYTHM Electronically Signed On 01-25-2022 8:53:46 CDT by Lupillo Henderson MD
--- NOTE | 2022-01-23 17:57 | RAD ---
Exam: Chest one view INDICATION: , chest pain TECHNIQUE: Frontal view of the chest Comparisons: None FINDINGS: The cardiomediastinal silhouette and pulmonary vessels are within normal limits. The lung and pleural spaces are clear. IMPRESSION: No acute cardiopulmonary process. Electronically signed by: Jaimee Peters MD (01/23/2022 5:55 PM) TK
[2022-01-23 18:27] LABS: BASO # 0.1 x10^3/uL (0.0-0.2); BASO % 1 % (0-3); EOS # 0.1 x10^3/uL (0.0-0.7); EOS % 1 % (0-3); HEMATOCRIT 38.4 % (36.0-47.0); HEMOGLOBIN 12.8 g/dL (12.0-15.5); LYMPH # 2.3 x10^3/uL (1.0-4.8); LYMPH % 31 % (24-48); MEAN CORPUSCULAR HEMOGLOBIN 30 pg (25-35); MEAN CORPUSCULAR HGB CONC 33 g/dL (31-37); MEAN CORPUSCULAR VOLUME 91 fL (79-100); MONO # 0.4 x10^3/uL (0.0-1.1); MONO % 6 % (0-9); NEUT # 4.5 x10^3uL (1.8-7.7); NEUT % 62 % (31-73); PLATELET COUNT 246 x10^3/uL (140-400); RED BLOOD COUNT 4.22 x10^6/uL (3.50-5.40); WHITE BLOOD COUNT 7.2 x10^3/uL (4.0-11.0)
--- NOTE | 2022-01-23 18:44 | PHYS DOC ---
Past History Past Medical History: CAD, Depression, Diabetes, MRSA (CELY EASLEY APRN) Past Surgical History: No Surgical History (CELY EASLEY APRN) Smoking: Cigarettes, Less than 1pk/day Alcohol Use: None Drug Use: None (CELY EASLEY APRN) General Adult EDM: Chief Complaint: HYPERTENSION HPI: HPI: Patient is a 56-year-old female presents with chest pain, shortness of breath, headache, nausea. Patient states that she has been having symptoms since beginning of the week. Pain has been intermittent. Patient reports taking her blood pressure today and it was in the 170s so she decided to be seen in the ER. History of depression, diabetes. (CELY EASLEY APRN) Review of Systems: Review of Systems: ROS At least 10 ROS systems have been reviewed and are negative except as documented in the HPI. General: Negative except as outlined in HPI above. Skin: Negative except as outlined in HPI above. HEENT: Negative except as outlined in HPI above. Neck: Negative except as outlined in HPI above. Respiratory: Negative except as outlined in HPI above.. Cardiovascular: Negative except as outlined in HPI above. Abdomen: Negative except as outlined in HPI above. : Negative except as outlined in HPI above. Back/MSK: Negative except as outlined in HPI above. Neuro: Negative except as outlined in HPI above. Psych: Negative except as outlined in HPI above. (CELY EASLEY APRN) Current Medications: Current Meds: Current Medications Medications (Trade) Dose Ordered Sig/David Start Time Stop Time Status Last Admin Dose Admin Morphine Sulfate (Morphine 4mg Syringe) 4 mg 1X ONCE 01/23/22 17:30 01/23/22 17:31 DC 01/23/22 18:37 4 MG Ondansetron HCl (Zofran) 4 mg 1X ONCE 01/23/22 17:30 01/23/22 17:31 DC 01/23/22 18:36 4 MG (CELY EASLEY APRN) Allergies: Allergies: Allergies Coded Allergies Type Severity Reaction Last Updated Verified amoxicillin Allergy Intermediate 05/07/17 Yes erythromycin base Allergy Intermediate STOMACH PAIN 05/08/15 Yes (CELY EASLEY APRN) Physical Exam: PE: Constitutional: Well developed, well nourished, no acute distress, non-toxic appearance. [] HENT: Normocephalic, atraumatic, bilateral external ears normal, oropharynx m oist, no oral exudates, nose normal. [] Eyes: PERRLA, EOMI, conjunctiva normal, no discharge. [] Neck: Normal range of motion, no tenderness, supple, no stridor. [] Cardiovascular:Heart rate regular rhythm, no murmur [] Lungs & Thorax: Bilateral breath sounds clear to auscultation [] Abdomen: Bowel sounds normal, soft, no tenderness, no masses, no pulsatile masses. [] Skin: Warm, dry, no erythema, no rash. [] Back: No tenderness, no CVA tenderness. [] Extremities: No tenderness, no cyanosis, no clubbing, ROM intact, no edema. [] Neurologic: Alert and oriented X 3, normal motor function, normal sensory function, no focal deficits noted. [] Psychologic: Affect normal, judgement normal, mood normal. [] (CELY EASLEY APRN) Current Patient Data: Vital Signs: Vital Signs Date Time Temp Pulse Resp B/P (MAP) Pulse Ox O2 Delivery O2 Flow Rate FiO2 01/23/22 18:37 85 20 160/75 (103) 96 Room Air (CELY EASLEY APRN) EKG: EKG: [] (CELY EASLEY APRN) Radiology/Procedures: Radiology/Procedures: []Exam: Chest one view INDICATION: , chest pain TECHNIQUE: Frontal view of the chest Comparisons: None FINDINGS: The cardiomediastinal silhouette and pulmonary vessels are within normal limits. The lung and pleural spaces are clear. IMPRESSION: No acute cardiopulmonary process. Electronically signed by: Jaimee Peters MD (01/23/2022 5:55 PM) TK (CELY EASLEY APRN) Heart Score: C/O Chest Pain: Yes HEART Score for Chest Pain: HEART Score for Chest Pain Response (Comments) Value History Slighlty/Non-Suspicious 0 ECG Normal 0 Age >45 - < 65 1 Risk Factors 1 or 2 Risk Factors 1 Troponin < Normal Limit 0 Total 2 Risk Factors: Risk Factors: DM, Current or recent (<one month) smoker, HTN, HLP, family history of CAD, obesity. Risk Scores: Score 0 - 3: 2.5% MACE over next 6 weeks - Discharge Home Score 4 - 6: 20.3% MACE over next 6 weeks - Admit for Clinical Observation Score 7 - 10: 72.7% MACE over next 6 weeks - Early Invasive Strategies (CELY EASLEY APRN) Course & Med Decision Making: Course & Med Decision Making Pertinent Labs and Imaging studies reviewed. (See chart for details) 56-year-old female presents with chest pain, shortness of breath, headache, nausea. Symptoms started at the beginning of the week. Work-up in ER consisted of CBC, CMP, urinalysis, troponin. Patient was concerned that her blood pressure was elevated. Blood pressure in ER was 160s. Patient is also reporting a headache. Denies thunderclap. Denies being the worst headache of her life. Patient reports that she doubled up on her lisinopril because she was concerned her blood pressure was too high at home. Pressures in the 170s at home. Patient appears to be very anxious. All labs unremarkable. Troponin is negative. Heart score of 2. Advised patient to follow-up with her PCP regarding her concerns with blood pressure. Discussed return precautions advised patient she may need further testing completed due to persistent chest pain. Patient is appreciative and okay with discharge plan. (CELY EASLEY APRN) Dragon Disclaimer: Dragon Disclaimer: This electronic medical record was generated, in whole or in part, using a voice recognition dictation system. (CELY EASLEY APRN) Attending Co-Sign The patient was seen and interviewed as well as examined at the bedside. The chart was reviewed. The case was discussed. Agree with the plan of care. (LIBERTY DOLAN DO) Departure Departure: Impression: Primary Impression: Chest pain Qualified Codes: R07.9 - Chest pain, unspecified Additional Impression: Blood pressure check Disposition: HOME / SELF CARE / HOMELESS Condition: STABLE Referrals: STEPHEN STEVENS (PCP) Patient Instructions: Chest Pain (Nonspecific), [id number] Additional Instructions: You are seen the emergency room for concerns of high blood pressure. Your blood pressure has been an appropriate range while in the ER. All of your labs were unremarkable. You need to follow-up with your PCP for further management and possible testing if pain continues. Return emergency room with worsening symptoms or concern such as chest pain, shortness of breath EMERGENCY DEPARTMENT GENERAL DISCHARGE INSTRUCTIONS Thank you for coming to [facility] (ED) today and trusting us with you care. We trust that you had a positivie experience in our Emergency Department. If you wish to speak to the department management, you may call the director at [phone]. YOUR FOLLOW UP INSTRUCTIONS ARE FOLLOWS: 1. Do you have a private Doctor? If you do not have a private doctor, please ask for a resource list of physicians or clinics that may be able to assist you with follow up care. 2. The Emergency Physician has interpreted your x-rays. The X-Ray specialist will also review them. If there is a change in the findings, you will be notified in 48 hours when at all possible. 3. A lab test or culture has been done, your results will be reviewed and you will be notified if you need a change in treatment. ADDITIONAL INSTRUCTIONS AND INFORMATION: 1. Your care today has been supervised by a physician who is specially trained in emergency care. Many problems require more than one evaluation for a complete diagnosis and treatment. We recommend that you schedule your follow up appointment as recommended to ensure complete treatment of you illness or injury. If you are unable to obtain follow up care and continue to have a problem, or if your condition worsens, we recommend that you return to the ED. 2. We are not able to safely determine your condition over the phone nor are we able to give sound medical advice over the phone. For these safety reasons, if you call for medical advice we will ask you to come to the ED for further evaluation. 3. If you have any questions regarding these discharge instructions please call the ED at [phone]. SAFETY INFORMATION: In the interest of safety, wellness, and injury prevention; we encourage you to wear your sealbelt, if you smoke; quite smoking, and we encourage family to use a protective helmet for bicycling and other sporting events that present an increased risk for head injury. IF YOUR SYMPTOMS WORSEN OR NEW SYMPTOMS DEVELOP, OR YOU HAVE CONCERNS ABOUT YOUR CONDITION; OR IF YOUR CONDITION WORSENS WHILE YOU ARE WAITING FOR YOUR FOLLOW UP APPOINTMENT; EITHER CONTACT YOUR PRIMARY CARE DOCTOR, THE PHYSICIAN WHOSE NAME AND NUMBER YOU WERE GIVEN, OR RETURN TO THE ED IMMEDIATELY. CELY EASLEY APRN January 23, 2022 18:43 LIBERTY DOLAN DO January 24, 2022 05:52
[2022-01-23 18:49] LABS: CALCIUM 9.4 mg/dL (8.5-10.1); CREATININE 0.8 mg/dL (0.6-1.0); GFR 74.7; POTASSIUM 4.5 mmol/L (3.5-5.1)
[2022-01-23 18:54] LABS: ALBUMIN 3.9 g/dL (3.4-5.0); ALBUMIN/GLOBULIN RATIO 1.3 (1.0-1.7); TOTAL BILIRUBIN 0.4 mg/dL (0.2-1.0)
[2022-01-23 20:38] VITALS: BP 136/76
== END 2022-01-23 20:42 | disposition home or self-care (01) ==
LOC: ER 16:48
DX: R07.9 Chest pain, unspecified (principal); R06.02 Shortness of breath; R51.9 Headache, unspecified; R11.0 Nausea; I25.10 Atherosclerotic heart disease of native coronary artery without angina pectoris; E11.9 Type 2 diabetes mellitus without complications; F17.210 Nicotine dependence, cigarettes, uncomplicated; Z88.1 Allergy status to other antibiotic agents
CPT/HCPCS: 36415; 71045; 80053; 84484; 85025; 85379; 93005; 96374; 96375; 99285; J2270; J2405